=== PATIENT | female | born 1965 | race Caucasian/White ===

== ENCOUNTER 2018-07-08 09:52 | Outpatient (CLI) | payer BC, SELFPAY ==
[2018-07-08 11:21] LABS: Hemoglobin A1C 5.3 % (4.5-6.2)
[2018-07-08 11:26] LABS: ALT 22 U/L (12-78); AST 13 U/L (15-37); Albumin 3.9 g/dL (3.4-5.0); Alkaline Phosphatase 108 U/L (46-116); Anion Gap 8.1 mmol/L (3-11); BUN 20 mg/dL (7-18); Bilirubin, Total 0.3 mg/dL (0.2-1.0); CO2 27.9 mmol/L (21.0-32.0); CREATININE 0.74 mg/dL (0.55-1.02); Calcium 9.2 mg/dL (8.5-10.1); Chloride 105 mmol/L (98-107); Glucose 82 mg/dL (70-100); Potassium 4.7 mmol/L (3.5-5.1); Sodium 141 mmol/L (136-145); Total Protein 6.9 g/dL (6.4-8.2)
== END 2018-07-08 10:12 ==
PROVIDERS: PCP Family Medicine; Visit Provider Family Medicine
DX: R73.03 Prediabetes (principal); K21.9 Gastro-esophageal reflux disease without esophagitis
CPT/HCPCS: 36415; 80053; 83036; 83735

== ENCOUNTER 2018-08-24 10:11 | Outpatient (REF) | payer BC, SELFPAY | END 2018-08-24 10:31 | LOC: LBN 10:11 | PROVIDERS: PCP Family Medicine | DX: R10.2 Pelvic and perineal pain (principal) | CPT/HCPCS: 87480; 87510; 87660 ==

== ENCOUNTER 2018-08-26 10:01 | Outpatient (REF) | payer BC, SELFPAY ==
[2018-08-27 14:27] LABS: Chlamydia Result Negative; GC Result Negative; Specimen Description URINE
== END 2018-08-26 10:21 ==
LOC: LBN 10:01
PROVIDERS: PCP Family Medicine; Visit Provider Family Medicine
DX: N76.0 Acute vaginitis (principal); R10.2 Pelvic and perineal pain; Z11.3 Encounter for screening for infections with a predominantly sexual mode of transmission
CPT/HCPCS: 87491; 87591

== ENCOUNTER 2019-01-08 10:07 | Outpatient (CLI) | payer BC, SELFPAY ==
[2019-01-08 11:11] LABS: Hemoglobin A1C 5.6 % (4.5-6.2)
[2019-01-08 15:13] LABS: ALT 23 U/L (12-78); AST 17 U/L (15-37); Albumin 4.1 g/dL (3.4-5.0); Alkaline Phosphatase 111 U/L (46-116); Anion Gap 8.8 mmol/L (3-11); BUN 16 mg/dL (7-18); Bilirubin, Total 0.4 mg/dL (0.2-1.0); CO2 28.2 mmol/L (21.0-32.0); CREATININE 0.74 mg/dL (0.55-1.02); Calcium 9.7 mg/dL (8.5-10.1); Chloride 103 mmol/L (98-107); Folate 13.9 ng/mL (8.6-20.0); Glucose 92 mg/dL (70-100); Magnesium 1.9 mg/dL (1.8-2.4); Sodium 140 mmol/L (136-145); Total Protein 7.2 g/dL (6.4-8.2); Vitamin B12 613 pg/mL (193-986)
== END 2019-01-08 10:27 ==
PROVIDERS: PCP Family Medicine; Visit Provider Podiatrist Foot & Ankle Surgery
DX: R20.8 Other disturbances of skin sensation (principal); R25.2 Cramp and spasm; R73.03 Prediabetes
CPT/HCPCS: 36415; 80053; 82607; 82746; 83036; 83735

== ENCOUNTER 2019-02-17 00:49 | Outpatient (CLI) | payer BC, SELFPAY ==
--- NOTE | 2019-02-17 09:30 | DI.MRI_ITS ---
SYMPTOMS/DIAGNOSIS: RIGHT KNEE PAIN, INSTABILITY, S/P TWISTING 7 WEEKS AGO, CLICKS AND LOCKS, POSITIVE DARLYN, S83.20A, ? MEDIAL MENISCAL TEAR MRI OF THE RIGHT KNEE: Axial T2 fat-sat, coronal T2 fat-sat, coronal proton density, sagittal proton density, sagittal T2 fat-sat and sagittal proton density thin ACL pulse sequences were performed. The extensor mechanism of the knee is intact. A small joint effusion is demonstrated. There are degenerative changes involving the medial meniscus. No meniscal tear is demonstrated. The cruciate ligaments are intact. Chondromalacia involving the medial femoral condyle is evident. The patella and patellar cartilage, and medial and lateral patellar retinaculum, and medial and lateral collateral ligaments of the knee are intact. Note is made of a small Scott's cyst. SUMMARY: No evidence of a fracture. A small joint effusion is demonstrated. There is chondromalacia of the articular surface of the medial femoral condyle and a small Scott's cyst is demonstrated.
== END 2019-02-17 01:09 ==
PROVIDERS: PCP Family Medicine; Visit Provider Physician Assistant
DX: M25.561 Pain in right knee (principal); M25.361 Other instability, right knee; M25.461 Effusion, right knee; M71.21 Synovial cyst of popliteal space [Baker], right knee
CPT/HCPCS: 73721

== ENCOUNTER 2019-09-30 01:40 | Outpatient (CLI) | payer BC, SELFPAY ==
--- NOTE | 2019-09-30 08:49 | DI.MAMMO_ITS ---
EXAM: MG MAMMO SCREENING CLINICAL HISTORY: SCREENING Z12.31. TECHNIQUE: Bilateral full field digital CC and MLO mammographic images were obtained with 3D tomosyn thesis and utilizing computer aided detection (CAD). COMPARISON: [id number] FINDINGS: Masses/Architectural Distortion: None seen. Microcalcifications: No suspicious pleomorphic-type are seen. Skin Thickening/Nipple Retraction: None. IMPRESSION: 1. No significant interval change with no specific features of malignancy noted. 2. Unless there is more urgent need, screening mammography is recommended, as per [employer] guidelines. BI-RADS Cat 1 - Negative Breast Density - Category C - Heterogeneously dense A negative radiographic report should not delay biopsy if a dominant or clinically suspicious mass is present. Up to ten percent of cancers are not identified on mammography. A negative report may reinforce clinical impression. Adenosis and dense breasts may obscure an underlying neoplasm. False positive reports average 6 to 10%. Patient will receive a letter notifying them of these results.
== END 2019-09-30 02:00 ==
PROVIDERS: PCP Family Medicine; Visit Provider Family Medicine
DX: Z12.31 Encounter for screening mammogram for malignant neoplasm of breast (principal)
CPT/HCPCS: 77063; 77067

== ENCOUNTER 2019-12-08 11:17 | Outpatient (REF) | payer BC, SELFPAY | END 2019-12-08 11:37 | LOC: LBN 11:17 | PROVIDERS: PCP Family Medicine; Visit Provider Family Medicine | DX: R30.0 Dysuria (principal) | CPT/HCPCS: 87077; 87086; 87186 ==

== ENCOUNTER 2020-03-23 15:13 | Outpatient (REF) | payer BC, SELFPAY ==
--- NOTE | 2020-03-23 14:00 | PAPFT_PTH ---
PATIENT: Nelia uDrham LOC: [facility] U#:[id number] AGE/SX: 55/F ROOM: RE03/23/[address]: Rebecca Arredondo MD : 1965 BED: DIS: 03/23/2020 SPEC #: [id number] RECD: 03/27/20 12:33 STATUS: ERVIN REMinerva #: [id number] SUSANNE: 03/23/20 14:[address]: Rebecca Arredondo DEPT: [facility] Cytology RECD BY: Ophelia Granados Tissues: 1 - CX/ENDOCX FOR PAP SMEARS Procedures: PAP THIN PREP/UVM Screening HPV DNA PROBE Comments: [id number]
== END 2020-03-23 15:33 ==
LOC: LBN 15:13
PROVIDERS: PCP Family Medicine; Visit Provider Family Medicine
DX: Z12.4 Encounter for screening for malignant neoplasm of cervix (principal); Z11.1 Encounter for screening for respiratory tuberculosis
CPT/HCPCS: 88142; 87624

== ENCOUNTER 2020-05-06 20:43 | Emergency (ER) | payer BC, SELFPAY ==
--- NOTE | 2020-05-06 20:48 | W.ED.GENAD ---
Discharge Plan Disposition Patient Disposition: HOME Condition: Good Discharge Details Chief Complaint: Urinary Clinical Impression: Pyelonephritis, Abnormal finding on chest xray Primary Care Provider: Rebecca Arredondo ED Provider: Howard Calhoun [place] Meds and New Rx's Prescriptions: New levofloxacin 750 mg tablet 750 mg PO DAILY Qty: 7 RF: 0 Continued Breo Ellipta 200-25 mcg/dose blister with device 1 inh IH DAILY RF: 0 omeprazole 20 mg capsule,delayed release(DR/EC) 20 mg PO DAILY Qty: 90 RF: 4 oxybutynin chloride 5 mg tablet extended release 24hr 5 mg PO DAILY Qty: 90 RF: 4 verapamil 180 mg tablet extended release 180 mg PO DAILY Qty: 90 RF: 4 pramipexole [Mirapex] 0.5 mg tablet 0.5 mg PO QHS Qty: 90 RF: 4 Flovent HFA 110 mcg/actuation HFA aerosol inhaler 1 puff IH BID Qty: 12 RF: 0 Horizant 300 mg tablet extended release 600 mg PO QPM Qty: 90 RF: 2 Discharge Instructions Instructions: Urinary Tract Infection in Women (ED) Additional Instructions: For the most part your laboratory studies look good. Your urine does suggest infection still and your chest x-ray is questionable for infiltrates so we will cover you with Levaquin. COVID testing is pending. Stay in isolation/quarantine until results are back and you are asymptomatic feeling better with clearance from your doctor. Recommend obtaining finger pulse ox to monitor oxygen level at home. Be sure to continue inhalers and use rescue inhaler if needed. Rest, fluids, Tylenol. Return to ED for mental status changes, chest pain, shortness of breath, vomiting, consistent room air pulse ox in the 80s. Stand Alone Forms: PENDING COVID-19 TESTING Referrals: Rebecca Arredondo MD [Primary Care Provider] - Medical Decision Making Patient presents with complaint of fever, headache, muscle pain with mild dry cough and feeling of shortness of breath. Recently treated for UTI with Macrobid for 7 days. No travel to quarantine counties. No exposure to COVID patient's that she is aware of. Appears to be extremely concerned for COVID more than anything else. Was sent in to be evaluated for possible pyelonephritis versus COVID. Patient does not look ill or toxic in any way. She does have left CVAT. Will place IV and give fluids, Toradol, Zofran. Will obtain CBC and a BMP as well as urine. Chest x-ray ordered although lungs sound completely clear and room air pulse ox is normal. 10:30 PM: Patient's urine does appear to still be infected with trace leukocytes on dip and white cells w/ bacteria on micro and minimal epithelial cells. Given the left CVAT will cover with a dose of IV ceftriaxone. Chest x-ray is being read by radiology as patchy lung opacities, possibly infiltrates as well as increase right paratracheal fullness worrisome for adenopathy. Will get ambulatory room air saturation. Will add COVID swab and other labs and attempt to delineate possibility of COVID. We will plan on discharge with Levaquin to cover for both respiratory or urinary bacterial infection. Have already discussed self-isolation/quarantine until COVID swab is back. 11:20 PM: LFTs, LDH, and ferritin are all fine. D-dimer just a little elevated so not overly worrisome. Overall seems reassuring for mild disease even if COVID. Patient does have rescue inhaler at home. Ambulatory saturations here 93%. Recommend finger pulse ox for home use to monitor saturations. We will also start Levaquin as discussed above. Rest, fluids, Tylenol as needed. Stay in quarantine until asymptomatic with negative results. Please contact primary care on Friday. Return to ED if increasing shortness of breath, chest pain, mental status changes, vomiting, other concerns or problems. Lab Data Lab results reviewed: Yes I reviewed the patient's lab results. HPI General Mode of arrival: ambulatory. Date/Time Provider Initiated Documentation: 05/06/20 20:46. Limitations to Documentation: no limitations. Information obtained by: patient, RN/MD, RN notes reviewed and old records reviewed. HPI Narrative: Patient presents to the ED with complaint of fever. Patient reports that she woke up this morning with headache and nausea. [place] like a migraine. Did resolve with medications. Took a nap this afternoon and woke up with fever, headache, nausea. She also is reporting a dry cough and a feeling of mild shortness of breath though she did not use her rescue inhaler. She complains of muscle pain. She denies rash or joint pain. She has just recently been treated with Macrobid for UTI. She complains of some lower abdominal pressure but no real urinary symptoms. She does have some back pain. She did take Tylenol for the fever prior to coming in. She denies travel to any non-quarantine counties. She denies exposure to any known COVID patients. 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 She was sent in for evaluation of the fever with consideration for COVID versus pyelonephritis. Related Data Home Medications Medication Instructions Recorded Confirmed fluticasone furoate 200 1 inh IH DAILY 03/03/19 05/06/20 mcg-vilanterol 25 mcg/dose inhalation powder gabapentin enacarbil 300 mg 600 mg PO QPM #90 tab 03/07/19 05/06/20 tablet,extended release omeprazole 20 mg capsule,delayed 20 mg PO DAILY #90 tab-cap 09/15/19 05/06/20 release oxybutynin chloride 5 mg 5 mg PO DAILY #90 tab 09/15/19 05/06/20 tablet,extended release 24 hr pramipexole 0.5 mg tablet 0.5 mg PO QHS #90 tab 09/15/19 05/06/20 verapamil 180 mg tablet,extended 180 mg PO DAILY #90 tab-cap 09/15/19 05/06/20 release fluticasone propionate 110 1 puff IH BID #12 gm 03/23/20 05/06/20 mcg/actuation HFA aerosol inhaler levofloxacin 750 mg PO DAILY #7 tab 05/06/20 Previous Rx's Medication Instructions Recorded gabapentin enacarbil 300 mg 600 mg PO QPM #90 tab 03/07/19 tablet,extended release omeprazole 20 mg capsule,delayed 20 mg PO DAILY #90 tab-cap 09/15/19 release oxybutynin chloride 5 mg 5 mg PO DAILY #90 tab 09/15/19 tablet,extended release 24 hr pramipexole 0.5 mg tablet 0.5 mg PO QHS #90 tab 09/15/19 verapamil 180 mg tablet,extended 180 mg PO DAILY #90 tab-cap 09/15/19 release fluticasone propionate 110 1 puff IH BID #12 gm 03/23/20 mcg/actuation HFA aerosol inhaler levofloxacin 750 mg PO DAILY #7 tab 05/06/20 Allergies Allergy/AdvReac Type Severity Reaction Status Date / Time No Known Allergies Allergy Verified 05/06/20 21:01 Review of Systems Narrative: As documented in HPI otherwise negative as below. Const: no chills, weakness Resp: no pleuritic pain CV: no CP, diaphoresis, edema, syncope GI: no abdominal pain, vomiting, diarrhea Neuro: no numbness, focal weakness, confusion [facility] Medical History Asthma (Chronic) Depression Diverticulosis GERD (gastroesophageal reflux disease) (Chronic) Migraines Surgical History BUNIONECTOMY (~09/2012) RIGHT Endometrial Ablation (~2006) thermablation Ligation of fallopian tube THYROID CYST REMOVED 10/12 FA Family History (Updated 03/24/20 @ 11:38 by Chapin Morillo) Mother Heart disease Stroke Alzheimers disease Father , 78 Essential hypertension Heart disease Stroke Sister No problems noted. Brother Heart disease Hyperlipidemia Alcohol abuse Cancer Paternal Grandfather , 59 Heart disease Brother Alcohol abuse Depression Asthma Brother , 53 Substance abuse Alcohol abuse Essential hypertension Depression Heart disease MS Brother Substance abuse Alcohol abuse Depression Schizophrenia Brother No problems noted. Brother Alcohol abuse Depression Hyperlipidemia Brother Essential hypertension Hyperlipidemia Brother Hemochromatosis Son Depression Son Depression Maternal Grandfather , 92 No problems noted. Maternal Grandmother , 99 No problems noted. Paternal Grandfather , 58 Heart disease Paternal Grandmother , age 72 No problems noted. 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 Pets and animals: Yes Pets and animals: dog(s) Sexually active: No Do you think of yourself as: straight/heterosexual Current gender identity: female What is your relationship status?: How often do you talk on the phone with friends or family?: three or more times per week How often do you get together with friends or relatives?: decline to answer How often do you attend restoration or latter-day services?: 4 or more times per year Do you belong to any clubs or organized social groups?: yes Panel score (0-1 are the most socially isolated patients): 3 What type of physical activity do you participate in: other Details: spinning Duration: 45-60 minutes/day Frequency: 3-4 times per week [place]/Jainism: Baptism Special montserrat needs: No Seatbelt use: always Helmet use: Yes Helmet use: always Drive intox or ride w/intox short haul driver: No Do you feel safe at home: Yes Do you feel safe in your relationship?: Yes Exam Narrative Exam Narrative: Vitals: Afebrile with normal vitals and normal room air pulse ox. Const: Obese female in NAD. HEENT: NC/AT. Normal facial exam. Eyes: Normal conjunctiva and sclera. Neck: Supple. Trachea midline. Lungs: Normal respiratory effort. Lungs are clear. Cor: RRR without murmur/gallop. Good radial pulses. GI: Soft. NT/ND. No guarding or rebound. Back: Left CVAT. Neuro: A+O x 3. Normal speech, mentation, gait. Cranial nerves II - XII grossly intact. No gross motor or sensory deficit. Ext: No C/C/E. Skin: Warm and dry without rash.
[2020-05-06 20:55] VITALS: BP 122/75; PULSE 98; RESP 18; TEMP 36.7; O2SAT 96
--- NOTE | 2020-05-06 21:00 | DI.RAD_ITS ---
EXAM: XR PORTABLE CHEST AP CLINICAL HISTORY: cough, fever TECHNIQUE: 2D digital imaging was performed. COMPARISON: CR CHEST 2 VIEWS PA,LAT from 04/29/2017 CR PORTABLE CHEST ONE VIEW from 05/18/2017 FINDINGS: MEDIASTINUM: There is increased prominence of the right paratracheal region. HEART: Normal. PULMONARY VASCULATURE: Normal. LUNGS: Patchy infiltrates are seen throughout the lungs most prominent in the upper lobes in the left lower lobe. PLEURAL SPACE: No pleural effusion or pneumothorax. BONE:Degenerative changes are seen in the spine. OTHER FINDINGS:Normal. IMPRESSION: 1. Bilateral pulmonary opacities which may represent filtrates but pulmonary nodules cannot be exclud ed.. 2. Right paratracheal fullness which is appears mildly progressed since the prior examination. Adeno benton should be considered. 3. Follow-up CT scan of the chest should be obtained for further evaluation. DATA REPOSITORY: RADIATION DOSE DELIVERED:
--- NOTE | 2020-05-06 21:05 | NUR.NOTE ---
Nursing Note: Pt states sent here for COVID19 testing, concern for travel in 3 local counties and grandson got sick yesterday. Pt states this seems to be more her focus than kidney pain or urinary issues.
[2020-05-06] MEDS: Ondansetron 4 MG/2 ML VIAL IVP (21:39)
[2020-05-06] MEDS: Lactated Ringers 1,000 ML 1000 ML IV (21:39)
[2020-05-06] MEDS: Ketorolac 15 MG/ML VIAL IVP (21:39)
[2020-05-06 21:46] LABS: Bilirubin Negative (Negative); Blood Negative (Negative); Clarity Clear (Clear); Glucose Negative (Negative); Ketones Negative (Negative); Leukocyte Esterase Trace (Negative); Nitrite Negative (Negative); Specific Gravity >= 1.030 (1.005-1.025); Urobilinogen 0.2 EU/dL (Up TO 0.2); pH 5.5 (5-8)
[2020-05-06 21:46] LABS: Abs Immature Grans 0.03 k/cumm (0.0-0.09); Absolute Basophil Count 0.01 k/cumm (0.0-0.2); Absolute Eosinophil Count 0.27 k/cumm (0.0-0.7); Absolute Lymphocyte Count 0.57 k/cumm (1.2-3.4); Absolute Monocyte Count 0.52 k/cumm (0.11-0.7); Absolute Neutrophil Count 10.79 k/cumm (1.2-6.7); Basophils % 0.1; Eosinophils % 2.2; HCT 42.2 % (36.0-46.0); Immature Grans % 0.2 %; Lymphocytes % 4.7; Mean Corp. HGB Concentration 33.2 g/dL (32.0-36.0); Mean Corpuscular Volume 90.6 fL (80-95); Mean Platelet Volume 10.8 fL (8.0-11.0); Monocytes % 4.3; Neutrophils % 88.5; Platelet Count 264 x1000/uL (130-400); RBC 4.66 m/cumm (4.00-5.20); RBC Distribution Width 12.7 % (11.7-14.6); White Blood Cell Count 12.19 k/cumm (4.4-10.8)
[2020-05-06 21:51] LABS: Anion Gap 11.2 mmol/L (3-11); BUN 9 mg/dL (7-18); CO2 24.8 mmol/L (21.0-32.0); CREATININE 1.01 mg/dL (0.55-1.02); Calcium 9.2 mg/dL (8.5-10.1); Chloride 102 mmol/L (98-107); Glucose 130 mg/dL (74-106); Potassium 3.7 mmol/L (3.5-5.1); Sodium 138 mmol/L (136-145)
--- NOTE | 2020-05-06 22:01 | DI.VRAD_ITS ---
PROCEDURE INFORMATION: Exam: XR Chest, 1 View Exam date and time: 05/06/2020 9:18 PM Age: 55 years old Clinical indication: Other: Cough, fever TECHNIQUE: Imaging protocol: XR of the chest Views: 1 view. Other technique: Portable exam. COMPARISON: SC PORTABLE CHEST ONE VIEW 05/18/2017 9:25 PM FINDINGS: Lungs: There is some patchy ill-defined parenchymal opacities, right upper lobe and left lower lobe with probable lingular and right lower lobe involvement. Pleural space: Unremarkable. No pleural effusion. No pneumothorax. Heart/Mediastinum: There is some right paratracheal fullness. This appears increased in conspicuity compared to prior study. Vasculature: Mild aortic ectasia. Bones/joints: Mild thoracic spondylosis. IMPRESSION: 1. Right paratracheal fullness slightly increased in conspicuity since prior exam. Adenopathy of concern. 2. Patchy lung opacities, possible infiltrates. Follow-up recommended. Dictated and Authenticated by: Sarah Narayanan MD. Ordering:MURIEL Lawrence MD
[2020-05-06 22:07] LABS: Bacteria Rare HPF (Negative); C & S Indicated? Yes; Crystals Negative HPF (Negative); Epithelial Cells Few HPF (Negative); Mucus Heavy (Negative)
[2020-05-06] MEDS: cefTRIAXone 1 GM/50 ML BAG IVPB (22:35)
[2020-05-06 22:42] LABS: ALT 24 U/L (14-59); AST 18 U/L (15-37); Albumin 3.9 g/dL (3.4-5.0); Alkaline Phosphatase 106 U/L (46-116); Bilirubin, Direct 0.12 mg/dL (0.00-0.20); Bilirubin, Total 0.5 mg/dL (0.2-1.0); C-Reactive Protein 4.71 mg/dL (0.0-0.3); LDH 208 U/L (81-234); Total Protein 7.5 g/dL (6.4-8.2)
[2020-05-06 23:03] LABS: Procalcitonin < 0.1 ng/mL
[2020-05-06 23:06] LABS: D-Dimer 524 ng/mlFEU (<500)
[2020-05-06 23:07] LABS: Ferritin 96 ng/mL (8-252)
--- NOTE | 2020-05-06 23:09 | NUR.NOTE ---
Nursing Note: Room air ambulation shows SaO2 93% with quick recovery to 95% after sitting. MD aware.
[2020-05-06 23:19] VITALS: BP 121/70; PULSE 90; RESP 18; TEMP 36.7; O2SAT 96
[2020-05-08 20:51] LABS: COVID-19 RT-PCR Result NEGATIVE (Negative)
--- NOTE | 2020-05-09 14:11 | NUR.NOTE ---
Nursing Note: Contacted patient via phone and notified of negative covid test results
== END 2020-05-06 23:30 | disposition home or self-care (01) ==
PROVIDERS: Emergency Provider Emergency Medicine; PCP Family Medicine
DX: N10 Acute pyelonephritis (principal); R91.8 Other nonspecific abnormal finding of lung field; R05 Cough; R50.9 Fever, unspecified; R06.02 Shortness of breath; Z03.818 Encounter for observation for suspected exposure to other biological agents ruled out; Z87.440 Personal history of urinary (tract) infections
CPT/HCPCS: 36415; 80048; 80076; 84145; 96361; 96365; 96375; 99284; U0003; 71045; 81003; 81015; 82728; 83615; 85025; 85379; 86140; 87086; J0696; J1885; J2405; J3490

== ENCOUNTER 2020-05-16 01:17 | Outpatient (CLI) | payer BC, SELFPAY ==
--- NOTE | 2020-05-16 09:15 | DI.CT_ITS ---
EXAM: CT CHEST W CLINICAL HISTORY: bilat.pulm.opacities/rt paratracheal fullness on chest xray TECHNIQUE: Imaging Protocol: Axial computed tomography images with coronal and sagittal reformatted images were created and reviewed CONTRAST MATERIAL: Intravenous: Omnipaque 350 Contrast volume:70 mL. COMPARISON: CR,XR XR PORTABLE CHEST AP from 05/06/2020 FINDINGS: Tracheobronchial tree: Patent where visualized. Mediastinum and Esther: No significant mediastinal adenopathy is seen. No right paratracheal mass or a denopathy is appreciated. Pulmonary parenchyma: Bilateral parenchymal scarring is present predominantly in the lower lobes. Th ere is a 3 mm noncalcified pulmonary nodule in the lateral aspect of the left upper lobe. No consoli dating infiltrates. Pleura: No effusion or pneumothorax. Heart: The heart is not dilated. No coronary artery calcifications are seen. No significant pericardi al effusion. Aorta: Thoracic aorta non-dilated. Upper abdomen: Cholelithiasis. No biliary ductal dilatation. 2 hypodensities in the left lobe of t he liver. The largest measures 0.8 cm. They are too small for further characterization but likely r eflect cysts. Lymph nodes: Within normal limits. Bones: Degenerative changes. No aggressive sclerotic or lytic lesions. Soft tissues: Unremarkable. IMPRESSION: 1. No acute pulmonary process. 2. 3 mm noncalcified pulmonary nodule in the left upper lobe. In the presence of significant patient medical history (smoking or other risk factors for malignancy), a follow-up CT scan in 12 months is recommended. 3. Cholelithiasis. No biliary ductal dilatation. 4. No evidence of a right paratracheal mass or adenopathy. RADIATION DOSE DELIVERED: Total DLP DATA REPOSITORY: All CT scans at this facility are submitted to the National Radiology Data Registry (NRDR) Dose Index Registry (DIR) with the [employer] (ACR). RADIATION OPTIMIZATION: All CT scans at this facility use at least one of these dose optimization te chniques: automated exposure control; mA and/or kV adjustment per patient size (includes targeted exa ms where dose is matched to clinical indication); or iterative reconstruction.
[2020-05-16] MEDS: Omnipaque 350 MG/ML 100 ML BTL IJ (09:32)
== END 2020-05-16 01:37 ==
PROVIDERS: PCP Family Medicine; Visit Provider Family Medicine
DX: R93.89 Abnormal findings on diagnostic imaging of other specified body structures (principal); R91.1 Solitary pulmonary nodule
CPT/HCPCS: 71260; J3490

== ENCOUNTER 2020-06-16 03:51 | Outpatient (CLI) | payer BC, SELFPAY ==
--- NOTE | 2020-06-16 09:40 | DI.MRI_ITS ---
EXAM: MR CERVICAL SPINE WO CLINICAL HISTORY: severe pain from cervical radiculopathy/numbness,M54.12 TECHNIQUE: Multiplanar multisequence MRI of the cervical spine was performed without intravenous con trast. COMPARISON: MR MRI - CERVICAL SPINE WO CONT from 05/06/2014 CT NECK WITH CONTRAST from 08/05/2017 FINDINGS: BONES: Vertebral body heights are maintained. Intervertebral disc spaces are normal. Alignment is nor mal. Bone marrow signal intensity is within normal limits. CERVICAL CORD: Craniovertebral junction is unremarkable. The cervical cord is normal size and signal intensity. SOFT TISSUES: Unremarkable. C2-3: No disc herniation or bulge is identified. C3-4: Mild disc bulging, eccentric toward the right. Small endplate osteophytes, greater on the righ t. C4-5: Mild loss of disc height. Endplate osteophytes projecting posteriorly and laterally, causing n eural foraminal narrowing, greater on the left. There is also effacement of the anterior CSF space. A small amount of fluid remains around the cord. C5-6: Moderate loss of disc height, small disc osteophytes eccentric toward the right causing right n eural foraminal narrowing. There is also effacement of the anterior CSF space. C6-7: Mild loss of disc height. Endplate osteophytes projecting mainly laterally, causing bilateral neural foraminal narrowing. C7-T1: No disc herniation or bulge is identified. IMPRESSION: Multilevel degenerative disc changes, greatest at C4-5 and C5-6. Multilevel neural foraminal narrowi ng and mild central canal stenosis is seen. No focal disc herniation is identified at any level. DATA REPOSITORY:
== END 2020-06-16 04:11 ==
PROVIDERS: PCP Family Medicine; Visit Provider Family Medicine
DX: M47.22 Other spondylosis with radiculopathy, cervical region (principal); M48.02 Spinal stenosis, cervical region
CPT/HCPCS: 72141

== ENCOUNTER 2020-09-05 00:33 | Outpatient (CLI) | payer BC, SELFPAY ==
--- NOTE | 2020-09-05 09:00 | ETT_ITS ---
APPROVED REPORT Exam: Exercise Treadmill Patient Location: Out-Patient Room/Bed: Stress Nurse: Corrina Soto RN BMI: 35.29 Baseline Rhythm: Sinus Rhythm Indications: KILPATRICK, unspecified asthma. Medical History Medical History: Asthma, Depression, Fibromyalgia, Cluster Headache's. Cardiac Medications: Verapamil, Omeprazole, Magnesium. Allergies: No known drug allergies Cardiac Risk Factors: FHX of CAD, Asthma Previous Cardiac Procedures: None. Pretest Chest Pain Characteristics: No chest pain Exercise History: Sedentary Physical Disabilities: None. Lung Sounds: Clear to auscultation Heart Sounds: Regular Stress Test Details Test: Exercise stress testing was performed using a Karlo protocol. Rest Stress HR Resting HR Supine: 60 bpm Max Heart Rate (APMHR): 164 bpm Resting HR Standin bpm Target HR (85% APMHR): 139 bpm Max HR Achieved: 171 bpm % of APMHR: 104 Recovery HR: 96 bpm HR response to stress: Normal HR response to stress BP Resting BP Supine: 122/76 mmHg Resting BP Standin/72 mmHg Max BP: 152/68 mmHg Recovery BP: 118/70 mmHg BP response to stress: Normal blood pressure response to stress. ECG Resting ECG: Sinus Rhythm Ectopy: None. Stress ECG: Sinus Tachycardia ST Change: no significant ST segment changes noted. Arrhythmia: None Recovery ECG: Sinus Rhythm Recovery ST Change: no signficant ST segment changes noted. Recovery Arrhythmia: None Clinical Reason for Termination: Dyspnea Stress Symptoms: Dyspnea Exercise duration: 7 min22 sec Highest Stage Reached: Stage 3: 3.4 mph at 14% grade. Exercise capacity: 9.18 METs Stress ECG Conclusion 1. The resting electrocardiogram was normal. 2. Patient exercised on the Karlo protocol and completed a workload of 9.18 METS. Peak heart rate wa s greater in the 100% of predicted for age 3. Normal heart rate and blood pressure response to exercise 4. There was no electrocardiographic evidence of myocardial ischemia 5. There were no dysrhythmias 6. Carlson treadmill score is 9, low risk Stress Test Summary STAGE Time (mins) Speed (mph) Grade (%) HR BP SYMPTOMS METS Supine 60 122/76 Standing 92 120/72 1 3 1.7 10 128 126/70 4.6 2 6 2.5 12 154 148/66 SOB 7 1 min recovery 152 152/68 3 min recovery 95 146/70 SOB resolved 6 min recovery 96 118/70
== END 2020-09-05 00:53 ==
PROVIDERS: PCP Family Medicine; Visit Provider Internal Medicine
DX: R06.09 Other forms of dyspnea (principal); J45.909 Unspecified asthma, uncomplicated; Z82.49 Family history of ischemic heart disease and other diseases of the circulatory system
CPT/HCPCS: 93017

== ENCOUNTER 2020-09-29 13:47 | Outpatient (REF) | payer BC, SELFPAY | END 2020-09-29 14:07 | LOC: LBN 13:47 | PROVIDERS: PCP Family Medicine; Visit Provider Physician Assistant | DX: N30.00 Acute cystitis without hematuria (principal) | CPT/HCPCS: 87086 ==

== ENCOUNTER 2020-10-09 21:48 | Outpatient (REF) | payer BC, SELFPAY ==
[2020-10-09 22:38] LABS: Clarity Cloudy (Clear)
[2020-10-09 22:39] LABS: Specific Gravity 1.024 (1.005-1.025)
[2020-10-09 22:47] LABS: Crystals Many Amorphous HPF (Negative)
[2020-10-09 22:49] LABS: C & S Indicated? C&S Done As Ordered
[2020-10-11 13:26] LABS: Chlamydia Result Negative (Negative); GC Result Negative (Negative)
== END 2020-10-09 22:08 ==
LOC: LBN 21:48
PROVIDERS: PCP Family Medicine; Visit Provider Nurse Practitioner Family
DX: N76.0 Acute vaginitis (principal); R10.2 Pelvic and perineal pain; N39.0 Urinary tract infection, site not specified; R30.0 Dysuria
CPT/HCPCS: 87491; 87591; 81003; 81015; 87086; 87480; 87510; 87660

== ENCOUNTER 2020-10-10 03:18 | Outpatient (CLI) | payer BC, SELFPAY ==
[2020-10-10 08:42] LABS: Abs Immature Grans 0.03 10^3/uL (0.0-0.06); Absolute Basophil Count 0.08 10^3/uL (0.0-0.2); Absolute Eosinophil Count 0.67 10^3/uL (0.0-0.7); Absolute Lymphocyte Count 2.41 10^3/uL (1.2-3.4); Absolute Monocyte Count 0.42 10^3/uL (0.1-0.8); Absolute Neutrophil Count 5.02 10^3/uL (1.2-6.7); Basophils % 0.9; Eosinophils % 7.8; HGB 13.2 g/dL (11.2-15.7); Immature Grans % 0.3; Lymphocytes % 27.9; MCH 29.8 pg (27.0-33.0); MCHC 32.2 % (32.0-36.0); MCV 92.6 fL (80-95); MPV 9.7 fL (8.0-11.0); Monocytes % 4.9; Neutrophils % 58.2; Nucleated RBC 0 %; Platelet Count 435 10^3/uL (130-400); RBC 4.43 10^6/uL (3.93-5.22); RDW 12.3 % (11.7-14.6); RDW-SD 41.8 fL; WBC 8.63 10^3/uL (4.4-10.8)
[2020-10-10 09:52] LABS: Calculated LDL 146 mg/dL (<100); Cholesterol 225 mg/dL (<200); HDL Cholesterol 61 mg/dL (40-60); TSH 1.82 uIU/mL (0.36-3.74); Triglyceride 90 mg/dL (<150)
[2020-10-10 12:01] LABS: ALT 28 U/L (14-59); AST 15 U/L (15-37); Albumin 3.9 g/dL (3.4-5.0); Alkaline Phosphatase 87 U/L (46-116); Anion Gap 10.6 mmol/L (3-11); BUN 16 mg/dL (7-18); Bilirubin, Total 0.4 mg/dL (0.2-1.0); CO2 25.4 mmol/L (21.0-32.0); CREATININE 0.89 mg/dL (0.55-1.02); Calcium 9.4 mg/dL (8.5-10.1); Chloride 106 mmol/L (98-107); Glucose 91 mg/dL (74-106); Potassium 4.3 mmol/L (3.5-5.1); Sodium 142 mmol/L (136-145); Total Protein 6.8 g/dL (6.4-8.2)
== END 2020-10-10 03:38 ==
PROVIDERS: PCP Family Medicine; Visit Provider Physician Assistant
DX: E78.5 Hyperlipidemia, unspecified (principal); E03.9 Hypothyroidism, unspecified; R10.9 Unspecified abdominal pain
CPT/HCPCS: 36415; 80053; 80061; 84443; 85025

== ENCOUNTER 2020-10-17 01:17 | Outpatient (CLI) | payer BC, SELFPAY ==
--- OUTSIDE RECORDS SUMMARY | 2020-10-17 01:19 | XMS_ITS | Encounter Summary ---
:1965 Author Care Team Providers Name Role Phone Rebecca Arredondo ([facility]) Primary Care Provider [phone] [facility] Medical Records Primary Care Provider [phone] Socorro Nixon MD Pacu Rn Unavailable Reason for Visit None recorded. Assessment and Plan 1. Asthma She was doing well, she has not needed a lbuterol in more than 2 years. When she came off completely of Flovent and Anoro, she had some exercise related chest tightness and wheezing. She is currently on Breo 200/25, 1 puff once a day. Since January she has more chest tightness, wheezing and dyspnea on exertion. She is now also on Flovent 110 mcg, 1 puff twice a day. She will continue with that and she will get prednisone 40 mg to taper by 10 mg every 3 days, if she is not better after that, she will call me and we will schedule her for exercise cardiac stress test. She will start using her albuterol 2 min utes before scheduled exercise. She will stay off of Vesna and Singula ir, those did not seem to help in the past. Her NIOXX maneuver normalized by February. She had some decrease in FEV1 over the i ncreasing concentrations of methacholine but it did not reach the level that is considered to be a significant drop in FEV1. Overall her clinical picture as well as the NIOXX measurements that we have done still point towards her having asthma. She will call me in 2 weeks to let me k now of her progress Her 3 mm right middle lobe nodule on c hest CT in a lifelong non-smoker does not need to be further followed. Fluarix influenza vaccination was given today ? prednisone 10 mg tablet 2. Administration of influenza v accine ? Fluarix Quad [id number] (PF ) 60 mcg (15 mcg x 4)/0.5 mL IM syringe Discussion Note More than 25 minutes were spent wit h the patient , more than 50% of the time counseling Patient educational handouts: No information available. Plan of Care Reminders Provider Appointments Office 30 11/24/2020 Gracy hardy 10:45AM MD [facility] None ? ? recorded. Referral None ? ? recorded. Procedures None ? ? recorded. Surgeries None ? ? recorded. Imaging None ? ? recorded. Medications Name Start Date ? ? albuterol sulfate HFA 90 mcg/actuation aerosol inhaler ? INHALE 2 PUFFS INTO THE LUNGS Q 4 H alprazolam 0.25 mg tablet ? Take 1 tablet every day by oral route as needed. Anoro Ellipta 62.5 mcg-25 mcg/actuation powder for inh alation ? Inhale 1 puff every day by inhalation route. Breo Ellipta 200 mcg-25 mcg/dose powder for inhalation ? INL 1 PUFF PO QD Flovent HFA 110 mcg/actuation aerosol inhaler ? INL 2 PFS PO BID Horizant ER 600 mg tablet,extended release ? TAKE 1 TABLET BY MOUTH AT BEDTIME magnesium ? omeprazole 20 mg capsule,delayed release ? TAKE 1 CAPSULE BY MOUTH ONCE DAILY riboflavin (vitamin B2) ? rizatriptan 10 mg tablet ? verapamil ER (SR) 120 mg tablet,extended release ? verapamil ER (SR) 180 mg tablet,extended release ? vitamin B complex ? Medications Administered None recorded. Vitals Height Weight BMI Blood Pressure 5 ft 9 in 105 kg 34.2 kg/m2 122/62 mm[Hg] Results Lab Results None recorded. Allergies Code Code System Name Reaction Severity Onset NKDA ? ? ? Problems Name Status Onset Date Source ? Asthma Active 06/15/2018 ? Depressive Disorder Active ? History Restless Legs Active ? History Pain in Limb Active ? History Nocturia Active ? History Procedures None recorded. Vaccine List Vaccine Type influenza, injectable, quadrivalent 07/27/2018 influenza, injectable, quadrivalent, pre servative free 07/05/2019 08/03/2020?0.5 mL Social History Tobacco Smoking Status Former Smoker Notes: 2-3 yea rs smoked socially in college Exposure to Asbestos N Exposure to Chemicals or Toxins N Pets? Y Notes: dog Blind or serious difficulty seeing N Not es: wears corrective lenses Language Difficulties No Deaf or serious difficulty hearing N Most Recent Tobacco Use Screening 01/29/2019 Advance directive N Exposure to Silica N Functional Status No Impairment. Past Encounters 08/03/2020 Asthma; Administration of Influenza Vacc ine Socorro Nixon MD: [address] [place] [address] Dr mire[address], [place] [address], Ph. History of Present Illness Note: <p>Patient is a 55-year-old woman who comes in for followup on exertional shortness of breath and cough and asthma. She had sinusitis in December 2016 , and shortness of breath on exertion. Chest x-ray 05/18/2017 was normal. She had a negative cardiac stress test and a normal echo. In September,, she had a thyroglossal duct cyst removal and the previous gasping episodes after that went away.</p><p>She had a sleep study in December of 2014, which was negative but showed severe periodic limb movement disorder. She took Requip, which caused a lot of foot tremors and was very difficult to tolerate.</p><p>She was, in December 2017, started on gabapentin 300 at bedtime. Shestill woke up in the middle of the night from restless leg, So she was changed to Horizant 600 mg atnight and later Mirapex 0.25 mg was added. With that her restless legs are well controlled, but if she skips even one dose the symptoms come back.</p><p>
</p><p>She is a lifelong non-smoker.</p><p>
</p><p>In terms of her breathing, she has done very well since January,, she has not needed albuterol for the last 2 years, last visit she was switched from Flovent and Anoro to Breo 200/25, 1 puff once a day because of insurance specifications, she had done very well on that. She has no coughing, no shortness of breath or wheezing. Shehad a torn meniscus in December, and a meniscus repair in April 2019. She recovered well and is participating in spinning. She was able to cut down on Breo to 100/25, 1 puff once a day. In January,, she started to have increased shortness of breath and coughing. Breo was increased back to 200/25, 1 puff once a day and Flovent was added 1 puff twice a day. She took that all throughout the summer, and then ran out of it about a week ago and had increasing shortness of breath. She still has some wheezing but no coughing. No nocturnal asthma symptoms. She is now short of breath walking quarter to ahalf a mile. In April, she had an ER visit for pyelonephritis, they did a chest x-ray which showed possible hilar fullness, CT angiogram of the chest was done on 05/16/2020. There was no hilar lymphadenopathy.</p><p>She offers no other complaints</p><p>
</p><p>SHE HAS POLLEN ALLERGIES.</p><p>Social history: Lifelong non-smoker</p><p>
</p> Review of Systems ? Notes: <p>as above</p> Physical Exam ? Notes: <p>Middle-aged woman in no a cute distress</p><p>Throat: Clear</p><p>Chest: clear Bilateral breath sound s with no wheezing crepitations or crackles. Minimally prolonged expirato ry phase on forceful exhalation, with minimal end expiratory wheezing and coug doug</p><p>Heart, S1, S2 normal</p><p>Neuro; A/O x 3</p><p>Extremities: No kai a, clubbing, cyanosis</p>
--- OUTSIDE RECORDS SUMMARY | 2020-10-17 01:19 | XMS_ITS ---
:1965 Author Care Team Providers Name Role Phone IVÁN HOANG ([facility]) Primary Care Provider [phone] SOCORRO NIXON MD [facility] Unavailable [facility] RECORDS Primary Care Provider [phone] Allergies Code Code System Name Reaction Severity Status Onset NKDA ? Medications Name Status Start Date Stop Date ? ? albuterol sulfate HFA 90 mcg/actuation aerosol inhaler Active ? Not available INHALE 2 PUFFS INTO THE LUNGS Q 4 H alprazolam 0.25 mg tablet Active ? Not av ailable alprazolam 0.5 mg tablet Completed ? 020 Anoro Ellipta 62.5 mcg-25 mcg/actuation powder for inhalation Ac tive ? Not available Inhale 1 puff every day by inhalation route. azithromycin 250 mg tablet Completed ? 01/29 Breo Ellipta 100 mcg-25 mcg/dose powder Completed ? 08/03/2020 for inhalation Breo Ellipta 200 mcg-25 mcg/dose powder for inhalation Active ? Not available INL 1 PUFF PO QD ciprofloxacin 250 mg tablet Completed ? 02/2019 cyclobenzaprine 5 mg tablet Completed ? 05/2020 fexofenadine 180 mg tablet Completed ? 01/29 Flovent HFA 110 mcg/actuation aerosol inhaler Active ? Not available INL 2 PFS PO BID gabapentin 300 mg capsule Completed ? 2019 Horizant ER 300 mg tablet,extended Completed ? 07/05/2019 release Horizant ER 600 mg tablet,extended release Active ? Not available TAKE 1 TABLET BY MOUTH AT BEDTIME levofloxacin 750 mg tablet Completed ? 08/03 magnesium Active ? Not available montelukast 10 mg tablet Completed ? 019 Neupro 2 mg/24 hour transdermal 24 hour Completed ? 01/29/2019 patch Neupro 3 mg/24 hour transdermal 24 hour patch Completed ? 08/13/2018 Apply 1 patch every day by transdermal route. nitrofurantoin Completed ? 08/03/2020 monohydrate/macrocrystals 100 mg capsule omeprazole 20 mg capsule,delayed release Active ? Not available TAKE 1 CAPSULE BY MOUTH ONCE DAILY omeprazole 40 mg capsule,delayed Completed ? 01/29/2019 release oxybutynin chloride ER 5 mg Completed ? 07/29 tablet,extended release 24 hr oxycodone 5 mg tablet Completed ? 12/27/2019 phenazopyridine 100 mg tablet Completed ? phenazopyridine 200 mg tablet Completed ? pramipexole 0.25 mg tablet Completed ? 12/26 pramipexole 0.5 mg tablet Completed ? 2019 prednisone 10 mg tablet Completed ? 08/25/20 prednisone 20 mg tablet Completed ? 08/03/20 promethazine 25 mg tablet Completed ? 2019 riboflavin (vitamin B2) Active ? Not avai lable rizatriptan 10 mg tablet Active ? Not rory ilable ropinirole 2 mg tablet Completed ? sulfamethoxazole 800 mg-trimethoprim Completed ? 08/03/2020 160 mg tablet topiramate 25 mg tablet Completed ? 08/25/20 verapamil ER (SR) 120 mg Active ? Not rory ilable tablet,extended release verapamil ER (SR) 180 mg Active ? Not rory ilable tablet,extended release vitamin B complex Active ? Not available Problems Name Status Onset Date Source ? Asthma Active 06/15/2018 ? Obesity Unknown ? History Depressive Disorder Active ? History Hypersomnia Unknown ? History Restless Legs Active ? History Pain in Limb Active ? History Irregular Sleep-wake Pattern Unknown ? His tory Dyspnea Unknown ? History Nocturia Active ? History Sleep Deprivation Unknown ? History Procedure by Method Unknown ? History Procedures Date Name Performed by ? 08/25/2020 Exercise Stress Test Xray [facility] [address] [place], [place] [address] (Work Place) Results Lab Results None recorded. Past Encounters 08/25/2020 Asthma Socorro Nixon MD: [address] [place] [address] Dr aline Morrell [address] [place] [phone], Ph. 08/03/2020 Asthma; Administration of Influenza Vacc ine Socorro Nixon MD: [address] [place] [address] Dr aline Morrell [address], [place] [address], Ph. 12/27/2019 Asthma Socorro Nixon MD: [address] [place] [address] Dr mireles [facility] [address], [place] [address], Ph. 07/05/2019 Asthma; Restless Legs Socorro Nixon MD: [address] [place] [address], Ph. Social History Tobacco Smoking Status Former Smoker Notes: 2-3 yea rs smoked socially in college Vaccine List Vaccine Type influenza, injectable, quadrivalent 07/27/2018 influenza, injectable, quadrivalent, pre servative free 07/05/2019 08/03/2020?0.5 mL Plan of Care Reminders Provider Appointments None ? ? recorded. Lab None ? ? recorded. Referral None ? ? recorded. Procedures None ? ? recorded. Surgeries None ? ? recorded. Imaging None ? ? recorded. Vitals 08/25/2020 10:30AM Office 30 Height Weight BMI Blood Pressure 175.26 cm 107 kg 34.8 kg/m2 128/62 mm[Hg] 08/03/2020 09:45AM Office 15 Height Weight BMI Blood Pressure 175.26 cm 105 kg 34.2 kg/m2 122/62 mm[Hg] 12/27/2019 01:45PM Office 15 Height Weight BMI Blood Pressure 175.26 cm 111 kg 36.1 kg/m2 118/70 mm[Hg] 07/05/2019 03:15PM Follow Up 30 Height Weight BMI Blood Pressure 175.26 cm 111.8 kg 36.4 kg/m2 143/83 mm[Hg] 01/29/2019 03:30PM Office 30 Height Weight BMI Blood Pressure 175.26 cm 110 kg 35.8 kg/m2 128/68 mm[Hg] 06/10/2018 03:30PM Any 30 Height Weight BMI Blood Pressure 175.26 cm 106.5 kg 34.7 kg/m2 110/70 mm[Hg] 01/19/2018 Height 175.26 cm 01/19/2018 Weight Blood Pressure 105.23 kg 120/80 mm[Hg] 02/13/2015 Weight Blood Pressure 104.33 kg 120/72 mm[Hg] 12/19/2014 Weight Blood Pressure 106.14 kg 102/64 mm[Hg] 12/19/2014 Height 177.8 cm
--- OUTSIDE RECORDS SUMMARY | 2020-10-17 01:19 | XMS_ITS | Encounter Summary ---
:1965 Author Care Team Providers Name Role Phone Rebecca Arredondo ([facility]) Primary Care Provider [phone] [facility] Medical Records Primary Care Provider [phone] Socorro Nixon MD Pharmacy Services Representative Unavailable Reason for Visit None recorded. Assessment and Plan 1. Asthma She was doing well, she has not needed a lbuterol in more than 2 years. When she came off completely of Flovent and Anoro, she had some exercise related chest tightness and wheezing. She is currently on Breo 200/25, 1 puff once a day and Flovent 110 mcg, 2 puffs twice a day. She really did not turn the corner with a prednisone taper or to premedicate before scheduled exercise with a lbuterol. At present we will add Anoro 1 puff once a day and will reevaluate in 2 weeks, but she will also need to be set up for a cardiac treadmill stress test and with a visit with Dr Anna to make s ure that her exertional shortness of michelle ath which is not responding to conventional asthma therapy, is not related to underlying cardiac dysfunction. Anoro samples were given She will follow up here in 2 weeks She will stay off of Vesna and [...] done still point towards her having asthma. Her 3 mm right middle lobe nodule on [facility] CT in a lifelong non-smoker does not need to be further followed. She already got her flu shot ? Anoro Ellipta 62.5 mcg-25 mcg/actuation powder for inhalation ? cardiology referral - Dear Christopher, thank you for seeing this patient who has fairly recent onset fairly significa nt exercise intolerance with shortness of breath but no chest pain. She so far arielle led to respond to conventional asthma therapy for possible exacerbation of asthma. She is getting an exercise stress test. Please evaluate for any cardiac dysfunction cau sing her exercise intolerance and shortness of breath that is not responding to asth ma therapy. Thank you. Cindy ? exercise stress test Discussion Note More than 25 minutes were spent wit h the patient , more than 50% of the time counseling Patient educational handouts: No information available. Plan of Care Reminders Provider Appointments Office 30 Gracy hardy 11/24/2020 MD [facility] 10:45AM Lab None recorded. ? ? Referral Cardiology Christopher Anna MD Referral 08/25/2020 Procedures None recorded. ? ? Surgeries None recorded. ? ? Imaging Exercise [facility] Stress Test 08/25/2020 Medications Name Start Date ? ? albuterol [...] BMI Blood Pressure 5 ft 9 in 107 kg 34.8 kg/m2 128/62 mm[Hg] Results Lab Results None recorded. Allergies Code Code System Name Reaction Severity Onset NKDA ? ? ? Problems Name Status Onset Date Source ? Asthma Active 06/15/2018 ? Depressive Disorder Active ? History Restless Legs Active ? History Pain in Limb Active ? History Nocturia Active ? History Procedures Date Name Performed by ? 08/25/2020 Exercise Stress Test Xray [facility] [address] [place], [place] [address] (Work Place) Vaccine List Vaccine Type influenza, injectable, quadrivalent [...] N Functional Status No Impairment. Past Encounters 08/25/2020 Asthma Socorro Nixon MD: [address] [place] [address] Dr [address] [address], [place] [address], Ph. 08/03/2020 Asthma; Administration of Influenza Vacc ine Socorro Nixon MD: [address] [place] [address] Dr [address] [address], [place] [address], Ph. History of Present Illness Note: <p>Patient is a 55-year-old woman who comes in for followup on exertional shortness of breath and cough and asthma.
</p><p>She had sinusitis in December 2016 , and shortness of breath on exertion. Chest x-ray 05/18/2017 was normal. She had a negative cardiac stress test and a normal echo. In September,, she had a thyroglossal duct cyst removal and the previous gasping episodes after that went away.</p><p>She had a sleep study in December of 2014, which was n egative but showed severe periodic limb movement disorder. She took Requip, which caused a lot of foot tremors and was very difficult to tolerate.</p><p>She was, in December 2017, started on gabapentin 300 at bedtime. She still woke up in the middle of the night from restless leg, So she was changed to Horizant 600 mg at night and later Mirapex 0.25 mg was added. With that her restless legs are well controlled, but if she skips even one dose the symptoms come back.</p><p>
</p><p>She is a lifelong non-smoker.</p><p>
</p><p>Interms of her breathing, she has done very well since January,, she has not needed albuterol for the last 2 years, last visit she was switched from Flovent and Anoro to Breo 200/25, 1 puff once a daybecause of insurance specifications, she had done very well on that. She has no coughing, no shortness of breath or wheezing. She had a torn meniscus in December, and a [...] She took that all throughout the summer, in late May she started to have some chest tightness and shortness ofbreath, minimal wheezing, no coughing. No nocturnal asthma symptoms. She is now short of breath walking quarter to a half a mile. Since the last visit with me on 08/03/2020, she took a course of prednisone taper which only marginally helped, she is using albuterol to premedicate before scheduled exercise and even that does not seem to help all that much. She has no chest pain
</p><p>In April, she had an ER visit for pyelonephritis, they did a chest x-ray which showed possible hilar fullness, CT angiogram of the chest was done on 05/16/2020. There was no hilar lymphadenopathy.</p><p>She offers no other complaints</p><p>
</p><p>SHE HAS POLLEN ALLERGIES.</p><p>Social history: Lifelong non-smoker</p><p>
</p> Review of Systems ? Notes: <p>As above
</p> Physical Exam ? Notes: <p>Middle-aged woman in no a cute distress</p><p>Throat: Clear</p><p>Chest: clear Bilateral breath sound s with no wheezing crepitations or crackles. No prolonged expiratory phase e hellen on forceful exhalation, but she has minimal end expiratory coughing</p>< p>Heart, S1, S2 normal</p><p>Neuro; A/O x 3</p><p>Extremities: No kai a, clubbing, cyanosis</p>
--- OUTSIDE RECORDS SUMMARY | 2020-10-17 01:19 | XMS_ITS ---
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 Problem Burning R20.8 Active 73289665 sensation of feet Problem Hammer toe of M20.41 Active 718261 [id number] right foot ALLERGIES No Known Allergies ENCOUNTERS Encounter Location Date Diagnosis [facility] Nov, [place] [address] [facility] Oct, [place] [address] [facility] Oct, Bunion of lef t foot [address] [place], [place] M21.612 ; [place] [address] left foot M20.42 ; Hammer toe of right sheila t M20.41 ; Metatarsalgia of left foot M77.42 ; Metatar salgia, right foot M77.4 1 and Plantar wart of right foot B07.0 [facility] Oct, [place] [address] [facility] [address] Sep, [place] [address] B07.0 [facility] Sep, [place] [address] [facility] Sep, [place] [address] [address] Sep, Bunion of lef t foot [address] [place], [place] M21.612 ; [place] [address] left foot M20.42 ; Hammer toe of right sheila t M20.41 ; Metatarsalgia of left foot M77.42 ; Metatar salgia, right foot M77.4 1 and Plantar wart of right foot B07.0 [facility] Jun, Bunion of lef [place] foot [address] [place], [place] M21.612 ; [place] [address] left foot M20.42 ; Hammer toe of right sheila t M20.41 ; Metatarsalgia of left foot M77.42 and Metat arsalgia, right foot M77.4 [address] [facility] Mar, Bunion of lef [place] foot [address] [place], [place] M21.612 ; [place] [address] left foot M20.42 ; Hammer toe of right sheila t M20.41 ; Metatarsalgia of left foot M77.42 and Metat arsalgia, right foot M77.4 1 [facility] [address] February, [place] [address] [facility] [address] Jan, [place] [address] [facility] [address] Jan, [place] [address] [facility] [address] Jan, [place] [address] M21.612 ; H ammer toe of left foot M20.42 ; Hammer toe of right sheila t M20.41 ; Metatarsalgia of left foot M77.42 and Metat arsalgia, right foot M77.4 1 [facility] [address] Jan, [place] [address] M21.612 ; H ammer toe of left foot M20.42 ; Hammer toe of right sheila t M20.41 ; Metatarsalgia of left foot M77.42 and Metat arsalgia, right foot M77.4 1 [facility] [address] Jan, [place] [address] [address] Dec, [place] [address] [address] Dec, 2018 Bunion, left foot M21.612 [address] [place], [place] ; Bunion, right foot [address] M21.611 ; Burnin g sensation of fee t R20.8 ; Neuropathy of ana th feet G57.93 ; Pre-mili betes R73.03 and Cramp of both lower extremitie s R25.2 [facility] [facility] 06 Dec, 2018 [place] [address] [facility] [address] Oct, [place] [address] [facility] [address] [facility] 16 Mar, 2015 Hammer toe 73 5.4 ; Toe [address] [place], [place] pain, rig ht 729.5 and [address] Onychauxis 703.8 IMMUNIZATIONS No Known Immunizations SOCIAL HISTORY Qualifiers Date Never Smoker REASON FOR REFERRAL FUNCTIONAL STATUS PLAN OF CARE Activity Details Follow Up 4 Weeks Reason: Future Test VITAMIN B12 20190106 Future Test COMPMET 20190106 Future Test FOLATE 20190106 Future Test HEMOGLOBIN A1C 20190106 Future Test MAGNESIUM 81423480 Future Test X Foot L 3V 20190106 Future Test X Foot R 3V 20190106 VITAL SIGNS Height 70 in 2019-11-10 Weight 246 lbs 2019-11-10 BMI 35.29 kg/m2 2019-11-10 Temperature 98.1 degrees Fahrenheit 2019-11-10 Heart Rate 69 /min 2019-11-10 Respiratory Rate 18 /min 2019-11-10 Oximetry 98 % 2019-11-10 Blood pressure systolic 110 mm Hg 2019-11-10 Blood pressure diastolic 62 mm Hg 2019-11-10 MEDICATIONS Medication Instructions Dosage Frequency Start End Duration Statu s Date Date Horizant 600 MG Orally Once a 1 tablet in 24h 30 day (s) Active day the evening with food Ascorbic Acid Orally once a as directed 24h Not-Takin 500 MG day g Umeclidinium-Vi Inhalation Once 1 puff 24h Not-Takin lanterol a day g 62.5-25 MCG/INH Breo Ellipta Inhalation Once 1 puff 24h Act aline 100-25 MCG/INH a day Anoro Ellipta Inhalation Once 1 puff 24h No t-Takin 62.5-25 MCG/INH a day g Oxybutynin Orally Once a 1 tablet 24h 30 day(s) Acti ve Chloride ER 5 day MG Gabapentin Orally Once a 2 tablets 24h 30 day(s) Not -Takin Enacarbil ER day in the g 300 MG evening with food Verapamil HCl Orally Once a 1 tablet 24h 30 day(s) A ctive ER 180 MG day Mirapex 0.5 MG as directed Activ e Magnesium 200 Orally Once a 1 tab 24h Not- Takin MG day g Omeprazole 20 orally once a 1 cap(s) 24h Act aline mg day ALPRAZolam 0.5 Orally 3 times 1 tablet N ot-Takin MG a day as needed g Fluticasone Inhalation 1 puff 12h Not-Takin Propionate HFA Twice a day g 110 MCG/ACT PROCEDURES No Known procedures RESULTS Name Result Date Reference Range MULTIPLE LABS 2019-01-08 VITAMIN B12 2019-01-08 VITAMIN B12 613 FOLATE 2019-01-08 FOLATE 13.9 COMPMET 2019-01-08 ALBUMIN 4.1 ALKPHOS 111 ALT 23 AST 17 BUN 16 CALCIUM 9.7 CHLORIDE 103 CARBON DIOXIDE 28.2 CREATININE STANDARDIZED 0.74 DIRECT BILIRUBIN ESTIMATED GLOMERULAR FILTRATION >60.0 GLUCOSE 92 POTASSIUM 4.0 SODIUM 140 TOTAL BILIRUBIN 0.4 TOTAL PROTEIN 7.2 EGFR INTERPRETATION BUN/CREAT CORRECT AGE zzGLUCOSE zzCREATININE zzSODIUM zzPOTASSIUM zzCHLORIDE zzCO2 zzCALCIUM zzTOTAL PROTEIN zzALBUMIN zzTOTAL BILI zzALT zzAST zzALKALINE PHOS BUN*/CREAT* MAGNESIUM 2019-01-08 MAGNESIUM 1.9 MAGNESIUM* HEMOGLOBIN A1C 2019-01-08 HGA1C 5.6 CALC. MEAN GLUC HB2 reviously reported u X Foot L 3V 2019-01-06 Image Accessible X Foot R 3V 2019-01-06 Image Accessible MULTIPLE LABS 2018-07-08 MULTIPLE LABS 2018-07-08 REASON FOR VISIT ORTHOTICS PICKUP and wart f/u Referral Done pt can 12/07, orthotics 2nd pair, 2nd pair of orthoticsare in , 2 week f/u , pt states that she is here for a wart treatement , pt states that she feel herwart is ready to peeled , Question regarding wart treatment, f/u R foot verruca, referral done, cantharone applied 2 weeks ago, Cantharone plus medication received, 2nd pair Orthotics payment, 3m f/u, referral done, continued care of metatarsalgia. She has some pain and callousing remaining right plantar foot,-HL, pt states that her feet are feeling a lot better. , pt states that the callus on the rgiht foot is really bothering her , pt states that she would like a second set of orthotics , 3 monthf/u from orthotics Referral Done, last seen by ALR 04/14/19 for orthotic dispense , was to obtain newshoes per last note , per last note surgery was discussed but pt wanted to try orthotics first , pt states that the orthotics have helped -mrr, Pt states she had knee surgery (right knee) hence the reason for the cane. - mrr, pt states that the bottom of right foot is ointment mill tender. -mrr, Orthotic d ispense, Referral done, Patient was last seen on 02/04/19 orthotic casting done. Bunion left foot anddeformities of both feet with skin lesion submetatarsal 2 possibly 3 right foot., pt states she is here for orthotic dispense , 5/30 db- Orthotic dispense, Orthotic Billing Question, ORTHOTICS PAYMENT, ORTHOTIC CASTING, referral done., Patient was last seen on 02/01/19 for Bunion of left foot and was recommended to have custom orthotics made with metatarsal pads., pt states she is here for orthotic casting , 1 month follow up, referral done, Patient last seen on 01/06/19 - xrays of b/l feet were orderedand to be reviewed at todays visit. Lab work ordered at [facility] for Vit B12, Folate, A1C, CMP, and Magnesium to be reviewed at todays visit, pt states she is here for a 1 month f/u , pt states she had x-rays done at [facility] , pt states she had lab work done at [facility] , pt states her foot is okay but not great, pt states she might have torn her miniscus right knee, Updating patients chart, Lab orders- [facility], Hallux Valgus, referral done, last seen by WS 04/11/15 for hammer toe- flexortenotomy preformed right 2nd toe , Pt c/o bilateral foot "nerve pain". Also c/o plantar wart on right foot for about 1 year, occasional OTC treatments have not helped., r/s appt letter wanted, hallux valgus referral done, last seen by WS 04/11/15 for painful right second toe , Updating pt chart, flexor tenotomy fol low up-wks patient, Referral Done, juan, Referral Done, Pt states her right foot, had bunion removed from Hallux and her 2nd digit toenail is bothering her. JV Insurance Providers [facility] Health Member Patient Patient Patient Patient Patient Subscriber Subscriber Subscriber Group Insurance Plan Plan Plan Plan ID Relationship Address Phone Name Date of ID Name Date of No Type Insurance Insurance Insurance Coverage to Subscriber Address Phone Name Dates BLUE CROSS [phone] BLUE CROSS self ALOK 1 [id number] OF [facility] 4^[place] [address] [place] [id number] MEDICAID EDS MEDICAID self ALOK 1965 [id number] [place] [facility] [facility] [id number] SELF PAY [address] SELF PAY self ALOK 1965 [place] [address] SELF PAY self ALOK [id number] [place] [address] S[address] SELF PAY self ALOK 1965 [place] [address] S[address] SELF PAY self ALOK 1965 [place] [address] S[address] SELF PAY self ALOK 1965 [place] [address] INSURANCE BLUE CROSS [address] BLUE CROSS self ALOK [id number] [facility] [place] [id number] [place] [address] SELF PAY self ALOK 1965 [place] [address] INSURANCE MEDICAID E[place] MEDICAID self ALOK 1965 [place] [id number] MEDICAL (GENERAL) HISTORY Type Description Date Medical History Myafascia pain Medical History Bulding disc neck and lower back Medical History Depression Medical History Diverticulosis Medical History Migraines Medical History Hallux valgus, left Surgical History tubal ligation ablation 2006 Surgical History TMJ 2007 Surgical History Right foot bunion 2012 Surgical History Flexor tenotomy , right 2nd toe 03/2015 Surgical History Thyroid cyst removal 09/2017 Surgical History meniscus tear repair (right knee) Hospitalization History Salmonella poison 1986
--- OUTSIDE RECORDS SUMMARY | 2020-10-17 01:20 | XMS_ITS ---
:1965 External Reference #:[id number] Author Care Team Providers Name Role Phone Knights Primary Care Provider Unavailable Allergies None recorded. Medications Name Status Start Date Stop Date ? ? Allergy Relief (fluticasone) 50 mcg/actuation nasal spray,castle spension Completed ? 03/13/2017 [place] 1 spray every day by intranasal route. amoxicillin 875 mg-potassium Completed ? clavulanate 125 mg tablet fexofenadine 180 mg tablet Active ? Not a vailable hydroxyzine HCl 25 mg tablet Completed ? indomethacin 50 mg capsule Completed ? 03/13 lorazepam 0.5 mg tablet Completed ? 03/13/20 17 nitrofurantoin Completed ? 03/13/2017 monohydrate/macrocrystals 100 mg capsule omeprazole 20 mg capsule,delayed Active ? Not available release oxybutynin chloride Active ? Not availabl e 5mg/day oxybutynin chloride ER 5 mg Active ? Not available tablet,extended release 24 hr phenazopyridine 100 mg tablet Active ? No t available prednisone 10 mg tablet Completed ? 03/13/20 17 prednisone 20 mg tablet Completed ? 03/13/20 17 Take by oral route. ranitidine 300 mg tablet Active ? Not rory ilable rizatriptan 10 mg tablet Active ? Not rory ilable ropinirole 2 mg tablet Active ? Not avail able Ventolin HFA 90 mcg/actuation aerosol inhaler Completed ? 03/13/2017 Inhale 2 puffs every 4 hours by inhalation route. verapamil ER (SR) 180 mg tablet,extended release Active ? Not available Take 1 tablet every day by oral route. verapamil ER 180 mg 24 hr Completed ? 2016 capsule,extended release verapamil ER 240 mg 24 hr Active ? Not av ailable capsule,extended release Notes: to prevent headaches Problems None recorded. Procedures Date Name Performed by ? 09/26/2012 Other Information not avai lable 06/27/2007 Other Information not avai lable 10/27/2006 Other Information not avai lable 04/02/2017 MRI, Brain, W/o Contrast [facility] (Mri And Ct Scheduling) [facility] [place] [address] (Work Place) 04/02/2017 MRI, Brain, W/wo Contrast [facility] (Mri And Ct Scheduling) [facility] [place] [address] (Work Place) Results Lab Results None recorded. Past Encounters None recorded. Social History Tobacco Smoking Status Never Smoker Vaccine List None recorded. Plan of Care Reminders Provider Appointments None ? ? recorded. Lab None ? ? recorded. Referral None ? ? recorded. Procedures None ? ? recorded. Surgeries None ? ? recorded. Imaging None ? ? recorded. Vitals 05/13/2017 08:00AM ESTABLISHED PATIENT 45 Height Weight BMI Blood Pressure 5 ft 9 in 235 lbs 34.7 kg/m2 120/82 mm[Hg] 04/02/2017 08:30AM ESTABLISHED PATIENT 30 Height 5 ft 9 in 02/27/2017 11:45AM NEW PATIENT 90 Height Weight BMI Blood Pressure 5 ft 9 in 239 lbs 35.3 kg/m2 126/78 mm[Hg]
--- NOTE | 2020-10-17 08:45 | DI.CT_ITS ---
EXAM: CT ABDOMEN PELVIS W CLINICAL HISTORY: abdominal pain, ill feeling, malaise, R10.9, R53.81 TECHNIQUE: Imaging Protocol: Axial computed tomography images with coronal and sagittal reformatted images were created and reviewed CONTRAST MATERIAL: Intravenous: Omnipaque 350 Contrast volume:100 mL Oral: Yes COMPARISON: CT ABD PELVIS WO CONTRAST from 11/11/2016 FINDINGS: ABDOMEN: Lung Bases: There is scarring in the left lingula. Liver: Normal density. There is a cyst again seen in the left lobe of the liver. Portal, Superior Mesenteric, and Splenic Veins: Unremarkable. Gallbladder and Biliary Tract: Gallstones are present. No biliary ductal dilatation. No gallbladder wall thickening or pericholecystic fluid is seen. Pancreas: Normal density, no abnormal calcifications or inflammatory process. Spleen: Normal. Adrenals: No masses seen. Kidneys: Normal size, contour and axis. No radiodense stones or obstructive uropathy. No masses seen. Abdominal Aorta: Abdominal portion non-dilated. Bowel: No obstruction or bowel wall thickening. Appendix is unremarkable. There is diverticulosis of the transverse, descending and sigmoid colon but no evidence of acute diverticulitis. Peritoneal Cavity: No ascites, collection or mesenteric inflammatory response. Lymph Nodes: Within normal limits. Bones: Degenerative changes are seen in the spine. Grade 1 pseudo spondylolisthesis of L4 on L5 is n oted. Soft Tissues: Unremarkable. PELVIS: Bladder: Symmetric distention, no gross wall thickening. Mild stranding is seen at the superior anter ior aspect of the urinary bladder. A mild inflammatory infectious cystitis cannot be excluded. Reproductive Organs: Unremarkable as visualized. Lymph Nodes: Within normal limits. Bones: Degenerative changes are seen in the spine. IMPRESSION: 1. Mild stranding around the anterior superior urinary bladder. A mild infectious or inflammatory cy stitis cannot be excluded. Please correlate clinically. 2. Cholelithiasis. No biliary ductal dilatation. 3. Colonic diverticulosis but no evidence of acute diverticulitis. RADIATION DOSE DELIVERED: 1,325.93mGy.cm Total DLP DATA REPOSITORY: All CT scans at this facility are submitted to the National Radiology Data Registry (NRDR) Dose Index Registry (DIR) with the [employer] (ACR). RADIATION OPTIMIZATION: All CT scans at this facility use at least one of these dose optimization te chniques: automated exposure control; mA and/or kV adjustment per patient size (includes targeted exa ms where dose is matched to clinical indication); or iterative reconstruction.
[2020-10-17] MEDS: Omnipaque 350 MG/ML 100 ML BTL IJ (11:24)
[2020-10-17] MEDS: Normal Saline - Diluent 50 ML VIAL IV (11:25)
[2020-10-17] MEDS: Omnipaque 350 MG/ML 50 ML BTL IJ (11:25)
[2020-10-17] MEDS: Breeza Beverage 473 ML BTL PO (11:26)
== END 2020-10-17 01:37 ==
PROVIDERS: PCP Family Medicine; Visit Provider Physician Assistant
DX: K80.20 Calculus of gallbladder without cholecystitis without obstruction (principal); K57.30 Diverticulosis of large intestine without perforation or abscess without bleeding
CPT/HCPCS: 74177; J3490; Q9967

== ENCOUNTER 2020-11-02 00:54 | Outpatient (CLI) | payer BC, SELFPAY ==
--- NOTE | 2020-11-02 | DI.MAMMO_ITS ---
EXAM: MG MAMMO SCREENING CLINICAL HISTORY: SCREENING, Z12.39 TECHNIQUE: Bilateral full field digital CC and MLO mammographic images were obtained with 3D tomosyn thesis and utilizing computer aided detection (CAD). COMPARISON: Available for comparison. FINDINGS: Masses/Architectural Distortion: None seen. Microcalcifications: No suspicious pleomorphic-type are seen. Skin Thickening/Nipple Retraction: None. IMPRESSION: 1. No significant interval change with no specific features of malignancy noted. 2. Unless there is more urgent need, screening mammography is recommended, as per [employer] guidelines. BI-RADS Category 1 - Negative Breast Density - Category C - Heterogeneously dense Breast density category C or D implies that the patient has dense breast tissue. Dense breast tissue is very common and is not abnormal but dense breast tissue can make it harder to find cancer on a ma mmogram. Also, dense breast tissue may increase their breast cancer risk. This information about the result of the mammogram report was provided to the patient to raise their awareness. Use this report when you speak with the patient about their risks for breast cancer, which includes their family hist ory. At that time, you may recommend for more screening tests (Ultrasound or MRI) as they might be us eful based on their risk. A negative radiographic report should not delay biopsy if a dominant or clinically suspicious mass is present. Up to ten percent of cancers are not identified on mammography. A negative report may reinforce clinical impression. Adenosis and dense breasts may obscure an underlying neoplasm. False positive reports average 6 to 10%. Patient will receive a letter notifying them of these results.
== END 2020-11-02 01:14 ==
PROVIDERS: PCP Family Medicine; Visit Provider Family Medicine
DX: Z12.31 Encounter for screening mammogram for malignant neoplasm of breast (principal)
CPT/HCPCS: 77063; 77067

== ENCOUNTER 2021-09-17 03:29 | Outpatient (CLI) | payer BC, SELFPAY ==
[2021-09-17 09:09] LABS: Abs Immature Grans 0.01 10^3/uL (0.0-0.06); Absolute Basophil Count 0.04 10^3/uL (0.0-0.2); Absolute Lymphocyte Count 1.74 10^3/uL (1.2-3.4); Absolute Monocyte Count 0.33 10^3/uL (0.1-0.8); Absolute Neutrophil Count 3.41 10^3/uL (1.2-6.7); Basophils % 0.7; Eosinophils % 3.5; HCT 41.8 % (36.0-46.0); HGB 13.6 g/dL (11.2-15.7); Immature Grans % 0.2; Lymphocytes % 30.4; MCH 29.9 pg (27.0-33.0); MCHC 32.5 % (32.0-36.0); MCV 91.9 fL (80-95); MPV 11.3 fL (8.0-11.0); Monocytes % 5.8; Neutrophils % 59.4; Nucleated RBC 0 %; Platelet Count 296 10^3/uL (130-400); RBC 4.55 10^6/uL (3.93-5.22); RDW 12.1 % (11.7-14.6); RDW-SD 41.1 fL; WBC 5.73 10^3/uL (4.4-10.8)
[2021-09-17 09:26] LABS: Anion Gap 8.2 mmol/L (3-11); BUN 16 mg/dL (7-18); CO2 27.8 mmol/L (21.0-32.0); Calcium 9.3 mg/dL (8.5-10.1); Chloride 110 mmol/L (98-107); Estimated GFR 57.15 (mL/min/1.73m2); Glucose 68 mg/dL (74-106); Potassium 4.2 mmol/L (3.5-5.1); Sodium 146 mmol/L (136-145)
[2021-09-17 09:44] LABS: Ferritin 138 ng/mL (8-252)
[2021-09-17 09:55] LABS: Vitamin D 25 Total 38.1 ng/mL (30-100)
== END 2021-09-17 03:30 | disposition home or self-care (01) ==
LOC: LBO 03:29
PROVIDERS: Podiatrist Foot & Ankle Surgery; PCP Family Medicine; Visit Provider Nurse Practitioner
DX: M25.561 Pain in right knee (principal); E55.9 Vitamin D deficiency, unspecified
CPT/HCPCS: 36415; 80048; 82306; 82728; 85025

== ENCOUNTER 2022-11-19 16:47 | Outpatient (REF) | payer BC, SELFPAY ==
[2022-11-19 12:51] LABS: Bilirubin Negative (Negative); Blood Trace-intact (Negative); Clarity Cloudy (Clear); Glucose Negative (Negative); Ketones Negative (Negative); Leukocyte Esterase Large (Negative); Nitrite Negative (Negative); Specific Gravity 1.025 (1.005-1.025); Urobilinogen 0.2 EU/dL (Up TO 0.2); pH 5.5 (5-8)
[2022-11-19 12:59] LABS: Bacteria Few HPF (Negative); C & S Indicated? Yes; Casts Negative LPF (Negative); Crystals Negative HPF (Negative); Epithelial Cells Few HPF (Negative); Mucus Negative (Negative); RBC 0-2 HPF (0-2); WBC >50 HPF (0-5)
== END 2022-11-19 16:48 | disposition home or self-care (01) ==
LOC: LBN 16:47
PROVIDERS: PCP Nurse Practitioner Family; Visit Provider Nurse Practitioner Family
DX: R35.0 Frequency of micturition (principal); R82.998 Other abnormal findings in urine
CPT/HCPCS: 87077; 81003; 81015; 87086; 87186

== ENCOUNTER 2022-11-29 00:15 | Outpatient (CLI) | payer BC, SELFPAY ==
--- NOTE | 2022-11-29 07:15 | DI.MAMMO_ITS ---
Exam(s) MAMMO SCREENING EXAM: MAMMO SCREENING CLINICAL HISTORY: screening,Z12.39. TECHNIQUE: Bilateral full field digital CC and MLO mammographic images were obtained with 3D tomosyn thesis and utilizing computer aided detection (CAD). COMPARISON: Prior mammograms were reviewed. FINDINGS: There has been no significant change in the appearance and distribution of the fibroglandular tissue. There are no new spiculated masses nor malignant appearing microcalcification groups. Benign-appearing lymph nodes in the right breast are unchanged from prior studies. There is no significant architectural distortion nor skin thickening-retraction. IMPRESSION: No radiographic evidence of malignancy. BI-RADS Category 1 - Negative Breast Density - Category B - Scattered areas of fibroglandular density Breast density Category C or D implies that the patient has dense breast tissue. Dense breast tissue can make it harder to find cancer on a mammogram. Dense breast tissue is also associated with an incr eased risk of breast cancer. This information about the result of the mammogram report was provided to the patient to raise their awareness. Use this report when you speak with the patient about their risks for breast cancer, which includes their family history. At that time, you may recommend additional screening tests (Ultrasoun d or MRI) as these tests may add significant information. A negative radiographic report should not delay biopsy if a dominant or clinically suspicious mass is present. Up to ten percent of cancers are not identified on mammography. A negative report may reinforce clinical impression. Adenosis and dense breasts may obscure an underlying neoplasm. False positive reports average 6 to 10%. Patient will receive a letter notifying them of these results.
--- NOTE | 2022-11-29 11:30 | DI.DEXA_ITS ---
Exam(s) XR DEXA BONE DENSITY W/WO LYLA EXAM: XR DEXA BONE DENSITY W/WO LYLA CLINICAL HISTORY: screening FOR OSTEOPOROSIS IN POSTMENOPAUSAL WOMAN,Z78.0 TECHNIQUE: Routine DEXA evaluation of the lumbar spine, hip, or forearm. COMPARISON: No exams were available for comparison FINDINGS: Performed on a Hologic unit. Lateral image: No compression fracture evident. Lumbar Spine total T-score: -1.2 Hip total T-score:-0.9 Independent reading at the level of the femoral neck yields T-score of -1.3 Forearm total T-score: 0.0 IMPRESSION: Bone mineral density measures in the osteopenia range. Fracture risk is moderate. Note: Any spine fracture indicates 5x risk for subsequent spine fracture and 2x risk for subsequent h ip fracture. World Health Organization criteria for BMD interpretation classify patients: Normal...... T- Score at or above -1.0 Osteopenic... T- Score between -1.0 and -2.5 Osteoporosis... T-Score at or below -2.5
== END 2022-11-29 00:35 ==
LOC: DI 00:15
PROVIDERS: PCP Nurse Practitioner Family; Visit Provider Nurse Practitioner Family
DX: Z78.0 Asymptomatic menopausal state (principal); Z12.31 Encounter for screening mammogram for malignant neoplasm of breast; Z13.820 Encounter for screening for osteoporosis; M85.89 Other specified disorders of bone density and structure, multiple sites
CPT/HCPCS: 77063; 77067; 77080

== ENCOUNTER → 2023-12-01 03:09 | Outpatient (CLI) | payer OTHER, SELFPAY ==
--- NOTE | 2023-12-01 06:45 | DI.MAMMO_ITS ---
Exam(s) MAMMO SCREENING EXAM: MAMMO SCREENING CLINICAL HISTORY: screening,z12.39. TECHNIQUE: Bilateral full field digital CC and MLO mammographic images were obtained with 3D tomosyn thesis and utilizing computer aided detection (CAD). COMPARISON: Prior mammograms were reviewed. FINDINGS: There are no new findings in left breast. In the right breast there are few unchanged benign-appearing nodules located laterally which are prob ably benign intramammary lymph nodes. However, there is also a suggestion of a new asymmetric densit y-possible nodule located laterally, measuring approximately 7 x 5 mm and located 5 cm in from the ni pple. Spot compression view and ultrasound recommended. There are no malignant-appearing microcalcification groups in this region or elsewhere in either [address]. There is no significant architectural distortion nor skin thickening-retraction. IMPRESSION: 1. No radiographic evidence of malignancy in left breast. 2. Suggestion of possible new right breast nodule. Spot compression views and ultrasound recommended . BI-RADS Category 0 - Assessment Incomplete: Need additional imaging evaluation Breast Density - Category B - Scattered areas of fibroglandular density Breast density Category C or D implies that the patient has dense breast tissue. Dense breast tissue can make it harder to find cancer on a mammogram. Dense breast tissue is also associated with an incr eased risk of breast cancer. This information about the result of the mammogram report was provided to the patient to raise their awareness. Use this report when you speak with the patient about their risks for breast cancer, which includes their family history. At that time, you may recommend additional screening tests (Ultrasoun d or MRI) as these tests may add significant information. A negative radiographic report should not delay biopsy if a dominant or clinically suspicious mass is present. Up to ten percent of cancers are not identified on mammography. A negative report may reinforce clinical impression. Adenosis and dense breasts may obscure an underlying neoplasm. False positive reports average 6 to 10%. Patient will receive a letter notifying them of these results.
== END ==
PROVIDERS: PCP Nurse Practitioner Family; Visit Provider Nurse Practitioner Family
DX: Z12.31 Encounter for screening mammogram for malignant neoplasm of breast (principal); R92.323 Mammographic fibroglandular density, bilateral breasts; R92.8 Other abnormal and inconclusive findings on diagnostic imaging of breast
CPT/HCPCS: 77063; 77067

== ENCOUNTER 2023-12-01 11:43 | Outpatient (CLI) | payer OTHER, SELFPAY ==
[2023-12-01 07:58] LABS: HCT 41.6 % (36.0-46.0); HGB 13.9 g/dL (11.2-15.7); MCH 30.8 pg (27.0-33.0); MCHC 33.4 % (32.0-36.0); MCV 92 fL (80-95); MPV 10.4 fL (8.0-11.0); Platelet Count 293 10^3/uL (130-400); RBC 4.51 10^6/uL (3.93-5.22); RDW 11.9 % (11.7-14.6); RDW-SD 40.7 fL; WBC 6.59 10^3/uL (4.4-10.8)
[2023-12-01 08:43] LABS: Anion Gap 6.3 mmol/L (3-11); BUN 16 mg/dL (7-18); CO2 28.7 mmol/L (21.0-32.0); CREATININE 0.9 mg/dL (0.55-1.02); Calcium 9.2 mg/dL (8.5-10.1); Calculated LDL 123 mg/dL (<100); Chloride 105 mmol/L (98-107); Cholesterol 233 mg/dL (<200); Estimated GFR 73.64 (mL/min/1.73m2); Glucose 85 mg/dL (74-106); HDL Cholesterol 93 mg/dL (40-60); Potassium 4.1 mmol/L (3.5-5.1); Sodium 140 mmol/L (136-145); TSH (W/Ref FT4) 3.21 uIU/mL (0.36-3.74); Triglyceride 88 mg/dL (<150)
[2023-12-01 18:56] LABS: Ferritin 116 ng/mL (8-252); Lab Add On Test DONE
== END 2023-12-01 11:44 | disposition home or self-care (01) ==
LOC: LBO 11:43
PROVIDERS: PCP Nurse Practitioner Family; Visit Provider Nurse Practitioner Family
DX: F32.9 Major depressive disorder, single episode, unspecified (principal); G25.81 Restless legs syndrome; J45.909 Unspecified asthma, uncomplicated; K21.9 Gastro-esophageal reflux disease without esophagitis; Z00.00 Encounter for general adult medical examination without abnormal findings
CPT/HCPCS: 36415; 80048; 80061; 85027; 82728; 83540; 83550; 84443

== ENCOUNTER → 2023-12-03 01:07 | Outpatient (CLI) | payer OTHER, SELFPAY ==
--- NOTE | 2023-12-03 | DI.MAMMO_ITS ---
Exam(s) MG MAMMO SCREEN CALL BACK UNI US BREAST RT LIMITED EXAM: MG MAMMO SCREEN CALL BACK UNI-RIGHT AND COMPLETE RIGHT BREAST ULTRASOUND CLINICAL HISTORY: F/U ABNL MAMMO, R92.8,? NEW RT BREAST NODULE. TECHNIQUE: Unilateral spot mammographic images obtained with 3D tomosynthesisand utilizing computer aided detection (CAD). . Complete RIGHT breast Ultrasound was also performed, including all 4 quadrants, the retroareolar mayito on, and the ipsilateral axilla. COMPARISON: Prior mammograms were reviewed. This additional imaging was performed due to findings described on the recent screening mammogram of 12/01/2023. FINDINGS: DIAGNOSTIC MAMMOGRAM: Additional mammographic views performed todayrender this area less concerning and similar in appearan ce to prior mammograms. COMPLETE RIGHT BREAST ULTRASOUND: Ultrasound performed today reveals no evidence of solid or significant cystic lesions in all 4 quadra nts. Small benign lipoma noted at 7 o'clock position.. Scanning of the ipsilateral axilla reveals no significant adenopathy. IMPRESSION: 1. No radiographic evidence of malignancy in the right breast. 2. Negative complete right breast ultrasound Appropriate follow-up is to keep this patient on a yearly mammogram schedule with earlier imaging if a self detected breast change is noted.. The patient was informed of these findings and recommendations by myself prior to leaving the departm ent today. BI-RADS Category 2 - Benign Findings Breast Density - Category C - Heterogeneously dense Breast density Category C or D implies that the patient has dense breast tissue. Dense breast tissue can make it harder to find cancer on a mammogram. Dense breast tissue is also associated with an incr eased risk of breast cancer. This information about the result of the mammogram report was provided to the patient to raise their awareness. Use this report when you speak with the patient about their risks for breast cancer, which includes their family history. At that time, you may recommend additional screening tests (Ultrasoun d or MRI) as these tests may add significant information. A negative radiographic report should not delay biopsy if a dominant or clinically suspicious mass is present. Up to ten percent of cancers are not identified on mammography. A negative report may reinforce clinical impression. Adenosis and dense breasts may obscure an underlying neoplasm. False positive reports average 6 to 10%. Patient will receive a letter notifying them of these results.
== END ==
PROVIDERS: PCP Nurse Practitioner Family; Visit Provider Nurse Practitioner Family
DX: Z12.31 Encounter for screening mammogram for malignant neoplasm of breast (principal); R92.8 Other abnormal and inconclusive findings on diagnostic imaging of breast
CPT/HCPCS: 76642; 77063; 77067

== ENCOUNTER 2024-12-03 20:27 | Outpatient (REF) | payer OTHER, SELFPAY ==
[2024-12-03 21:29] LABS: Bilirubin Negative (Negative); Blood Trace-intact (Negative); Clarity Turbid (Clear); Glucose Negative (Negative); Ketones Negative (Negative); Leukocyte Esterase Moderate (Negative); Nitrite Negative (Negative); Specific Gravity 1.025 (1.005-1.025); Urobilinogen 0.2 mg/dL (Up to 0.2); pH 5.5 (5-8)
[2024-12-03 21:34] LABS: Bacteria Many HPF (Negative); Casts Negative LPF (Negative); Crystals Moderate Amorphous HPF (Negative); Epithelial Cells Few HPF (Negative); Mucus Negative (Negative); WBC >50 HPF (0-5)
[2024-12-03 21:35] LABS: C & S Indicated? Yes
== END 2024-12-03 20:28 | disposition home or self-care (01) ==
LOC: NCHCN 20:27
PROVIDERS: PCP Nurse Practitioner Family; Visit Provider Physician Assistant
DX: N39.0 Urinary tract infection, site not specified (principal); B96.29 Other Escherichia coli [E. coli] as the cause of diseases classified elsewhere; R82.89 Other abnormal findings on cytological and histological examination of urine
CPT/HCPCS: 87077; 81003; 81015; 87086; 87186

== ENCOUNTER 2024-12-16 01:01 | Outpatient (CLI) | payer OTHER, SELFPAY ==
--- NOTE | 2024-12-16 08:04 | DI.MAMMO_ITS ---
Exam(s) MAMMO SCREENING EXAM: MAMMO SCREENING CLINICAL HISTORY: screening,Z12.39 TECHNIQUE: Bilateral full field digital CC and MLO mammographic images were obtained with 3D tomosyn thesis and utilizing computer aided detection (CAD). COMPARISON: Available for comparison. FINDINGS: Masses/Architectural Distortion: No suspicious masses. No areas of architectural distortion. Microcalcifications: No suspicious pleomorphic-type are seen. Skin Thickening/Nipple Retraction: None. IMPRESSION: 1. No significant interval change with no specific features of malignancy noted. 2. Unless there is more urgent need, screening mammography is recommended, as per [employer] guidelines. BI-RADS Category 1 - Negative Breast Density - Category B - Scattered areas of fibroglandular density Breast density category C or D implies that the patient has dense breast tissue. Dense breast tissue is very common and is not abnormal but dense breast tissue can make it harder to find cancer on a ma mmogram. Also, dense breast tissue may increase their breast cancer risk. This information about the result of the mammogram report was provided to the patient to raise their awareness. Use this report when you speak with the patient about their risks for breast cancer, which includes their family hist ory. At that time, you may recommend for more screening tests (Ultrasound or MRI) as they might be us eful based on their risk. A negative radiographic report should not delay biopsy if a dominant or clinically suspicious mass is present. Up to ten percent of cancers are not identified on mammography. A negative report may reinforce clinical impression. Adenosis and dense breasts may obscure an underlying neoplasm. False positive reports average 6 to 10%. Patient will receive a letter notifying them of these results.
== END 2024-12-16 01:21 ==
LOC: DI 01:01
PROVIDERS: PCP Nurse Practitioner Family; Visit Provider Nurse Practitioner Family
DX: Z12.31 Encounter for screening mammogram for malignant neoplasm of breast (principal); R92.323 Mammographic fibroglandular density, bilateral breasts
CPT/HCPCS: 77063; 77067

== ENCOUNTER 2025-07-04 21:21 | Outpatient (REF) | payer OTHER, SELFPAY | END 2025-07-04 21:22 | disposition home or self-care (01) | LOC: LBN 21:21 | PROVIDERS: PCP Nurse Practitioner Family; Visit Provider Nurse Practitioner Family | DX: N30.00 Acute cystitis without hematuria (principal) | CPT/HCPCS: 87086 ==

== ENCOUNTER 2025-07-12 03:47 | Outpatient (CLI) | payer OTHER, SELFPAY ==
[2025-07-12 12:35] LABS: Glucose Negative (Negative)
[2025-07-12 12:38] LABS: Abs Immature Grans 0.01 10^3/uL (0.0-0.06); HCT 38.1 % (36.0-46.0); HGB 12.6 g/dL (11.2-15.7); Immature Grans % 0.1 %; MCH 30.1 pg (27.0-33.0); MCHC 33.1 % (32.0-36.0); MCV 91 fL (80-95); MPV 10.1 fL (8.0-11.0); Platelet Count 419 10^3/uL (130-400); RBC 4.19 10^6/uL (3.93-5.22); RDW 12.2 % (11.7-14.6); RDW-SD 39.8 fL; WBC 7.03 10^3/uL (4.4-10.8)
[2025-07-12 12:47] LABS: C & S Indicated? No; RBC 0-2 HPF (0-2)
[2025-07-12 13:46] LABS: ALT 28 U/L (14-59); AST 18 U/L (15-37); Albumin 3.8 g/dL (3.4-5.0); Alkaline Phosphatase 93 U/L (46-116); Anion Gap 9.7 mmol/L (3-11); BUN 7 mg/dL (7-18); Bilirubin, Total 0.4 mg/dL (0.2-1.0); CO2 27.3 mmol/L (21.0-32.0); Calcium 9.7 mg/dL (8.5-10.1); Chloride 105 mmol/L (98-107); Estimated GFR 98.34 (mL/min/1.73m2); Glucose 89 mg/dL (74-106); Lipase 51 U/L (<78); Potassium 4.0 mmol/L (3.5-5.1); Sodium 142 mmol/L (136-145); Total Protein 7.0 g/dL (6.4-8.2)
[2025-07-13 09:58] LABS: Hepatitis C Ab w Rflx HCV PCR Negative (Negative)
[2025-07-13 10:15] LABS: HIV-1/2 Ag & Ab Screen Negative (Negative)
== END 2025-07-12 03:48 | disposition home or self-care (01) ==
LOC: LBO 03:47
PROVIDERS: PCP Nurse Practitioner Family; Visit Provider Family Medicine
DX: R10.9 Unspecified abdominal pain (principal); E80.6 Other disorders of bilirubin metabolism; R30.0 Dysuria; Z11.59 Encounter for screening for other viral diseases; Z11.4 Encounter for screening for human immunodeficiency virus [HIV]; Z00.00 Encounter for general adult medical examination without abnormal findings
CPT/HCPCS: 36415; 80053; 83690; 86803; 87389; 81003; 81015; 85025

== ENCOUNTER 2025-09-16 09:06 | Day surgery (SDC) | payer OTHER, SELFPAY ==
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
--- NOTE | 2025-09-15 14:09 | W.COLOREPORT ---
Date of service: 09/16/25 Time of Service: 11:19 Colonoscopy Report Date of procedure: 09/16/25 Pre-op diagnosis general: Screening colonoscopy Post-op diagnosis procedure note: other (Diverticulosis) Procedure: Colonoscopy Surgeon: Shankar Young Anesthesia Type: General:No Airway Estimated blood loss (mL): 0 Pathology: none sent Complications: None Disposition: same day Indications: Jennifer is a 60-year-old woman who needs her next screening colonoscopy Prep: Miralax/Dulcolax Procedure Start Time: 10:47 Procedure End Time: 11:09 Retraction Time: 7 Findings: Diverticulosis Procedure Description: After the induction of anesthesia, and with the patient in left lateral decubitus position, I began by performing an external anorectal exam. Perineum and skin were normal, as was the anal verge. There was no evidence of external hemorrhoids. Next, I performed a digital rectal exam. I did not appreciate any abnormal findings. Next, I advanced a colonoscope into the rectal vault. I performed retroflexion. This appeared normal. Using insufflation, I then advanced the colonoscope beyond the rectal folds and into the sigmoid colon before advancing towards the cecum. There is sigmoid diverticulosis. The scope was noted to be in the cecum by identification of the ileocecal valve and appendiceal orifice. I then began withdrawing the colonoscope using repeated irrigation as necessary for full evaluation of the colonic mucosa. Once the scope was withdrawn to the level of the rectum, great care was taken to examine portions of the rectal folds. I saw no signs of tumors or polyps. Finally, the scope was withdrawn and the patient was brought to the same-day surgery recovery unit as the anesthetic wore off. The findings and instructions were shared with the patient prior to discharge. [place] Bowel Prep [place] Bowel Prep Right Colon: 3 Left Colon: 2 Transverse Colon: 3 Total Score: 8
[2025-09-16 09:30] VITALS: BP 113/73; PULSE 71; RESP 17; TEMP 36.4; O2SAT 98
[2025-09-16] MEDS: Lactated Ringers 1,000 ML 80 ML IV (09:47)
[2025-09-16 10:15] VITALS: BMI 25.5
--- NOTE | 2025-09-16 10:15 | ANES.PREOP_ITS ---
General Info Date of Service Date Performed: 09/16/25 Height: 5 ft 8.5 in Weight: 77.4 kg Body Mass Index (BMI): 25.5 Surgical Procedure: Operation Date: 09/16/25 10:35 Proposed Procedure Side Surgeon p Colonoscopy Shankar Young MD Actual Procedure Side Surgeon p Colonoscopy Not Applicable Shankar Young MD Meds Allergies and Home Medications Allergies Allergy/AdvReac Type Severity Reaction Status Date / Time No Known Allergies Allergy Verified 09/16/25 09:40 Home Medication Medication Instructions Recorded magnesium 200 mg tablet 200 mg PO DAILY 08/28/20 lidocaine 5 % topical patch 1 patch topical DAILY #30 ea 04/17/23 nystatin 100,000 unit/gram topical 1 applic topical TI D fungal rash 08/06/24 powder #60 grams epinephrine 0.3 mg/0.3 mL 0.3 mg (0.3 mL) subcut Q15M #2 ea 10/04/24 injection syringe gabapentin 600 mg tablet 600 mg PO QHS #90 tabs 02/24 tirzepatide (weight loss) 15 15 mg (0.5 mL) subcut QWE EK #2 mL 03/25/25 mg/0.5 mL subcutaneous pen injector estradiol 10 mcg vaginal tablet 10 mcg vaginal Q OTHER DAY 3 05/31/25 (Vagifem) months #45 tabs bisacodyl 5 mg tablet,delayed 5 mg PO ONCE Colonoscopy Bowel 07/25/25 release Prep #4 tabs polyethylene glycol 3350 17 238 g PO ONCE #238 grams 0 07/25/25 gram/dose oral powder rizatriptan 10 mg tablet (Maxalt) See Rx Instructions PO .COMPLEX 09/03/25 #14 tabs Current Visit Medications: Current Medications Generic Name Dose Route Start Last Admin Trade Name Freq PRN Reason Stop Dose Admin Ringer's Solution 1,000 mls @ 80 mls/hr 09/16/25 06:00 09/16/25 09:47 IV 09/16/25 23:59 80 mls/hr INFUSION XIOMY Administration IV Miscellaneous Supplies 1 each 09/16/25 06:00 Iv Access IV 09/16/25 23:59 DIRECTED XIOMY Sodium Chloride 0 ml 09/16/25 06:00 Normal Saline Flush 10 Ml Syr IV 09/16/25 23:59 PRN PRN Sodium Chloride 0 ml 09/16/25 06:00 Normal Saline 10 Ml Vial IJ 09/16/25 23:59 DIRECTED PRN Sterile Water 0 ml 09/16/25 06:00 Water,Injection,Sterile 10 Ml Vial IJ 09/16/25 23:59 DIRECTED PRN PFSH Active Problems Active Problems: Problem Status Onset Code Encounter for screening colonoscopy Acute Z12.11 Cholelithiasis Acute K80.20 Atrophic vaginitis Acute N95.2 Neuropathy of foot Acute G57.90 Hyperlipidemia Acute E78.5 Temporomandibular joint disorder Chronic M26.609 Hyposmia Acute R43.8 Chronic congestion of paranasal sinus Acute J32.9 GERD (gastroesophageal reflux disease) Chronic K21.9 Asthma Chronic J45.909 Thyroglossal duct cyst Acute 08/15/17 Q89.2 Restless leg syndrome Acute 02/19/15 G25.81 Depressive disorder Acute F32.9 Cluster headache syndrome Acute G44.009 Anxiety Acute 10/04/13 F41.9 Medical History Medical History Sleep deprivation Nocturia Dyspnea Hypersomnia Depression Migraines Diverticulosis Surgical History Surgical History Ligation of fallopian tube THYROID CYST REMOVED 10/12 [facility] Endometrial Ablation (~2006) thermablation BUNIONECTOMY (~09/2012) RIGHT Tobacco Smoking/Tobacco Use Status: Never Passive smoking exposure: Yes Second hand exposure: Yes Alcohol Alcohol Intake: current Alcohol intake frequency: a few times a week Alcohol type: beer and wine Details: 6 or more drinks monthly or less Substance Use Substance use: Rarely Substance use type: marijuana Details: last ETOH 09/10/25 Vital Signs and Lab Results Vital Signs Most Recent Vital Signs in EMR: Most Recent Vital Signs Temp Pulse Resp BP Pulse Ox 36.4 C L 71 17 113/73 98 09/16/25 09:30 09/16/25 09:30 09/16/25 09:30 09/16/25 09:30 09/16/25 09:30 Anesthesia Assessment and Plan Anesthesia History Personal History: PONV Family History: No Family History of Anesthesia Complications Exercise Tolerance Exercise Tolerance: Metabolic Equivalents>4 Pertinent Negatives Pertinent Negatives: No Symptoms of GERD Cardiac & Pulmonary Exam Cardiac Exam: Normal S1/S2 Heart Sounds Pulmonary Exam: Clear Bilateral Breath Sounds Implantable Cardiac Device Does patient have a Pacemaker or an ICD?: No Airway Exam Known Difficult Airway: No Mallampati Class: 2 Mouth Opening: Normal (> 3cm) Thyromental Distance: Greater than 3 cm Neck Range of Motion: Full ROM Neck Circumference: Normal Teeth Condition: Normal Dentition ASA Classification ASA Score: ASA 2 Emergency Case?: No NPO Status NPO Status: NPO Clears >2 hours, Solids >8 hours Anesthesia Plan Resuscitation Status: Full Code Anesthesia Technique: General Anesthesia Airway Planned: Natural Airway Monitors Used: Standard Monitors
--- NOTE | 2025-09-16 10:35 | W.PM.DSUDISC ---
Date of service: 09/16/25 Discharge Plan Disposition Patient Disposition: Home Condition: Good Discharge Details Reason For Visit: Screening colonoscopy Attending Provider: Shankar Young Primary Care Provider: Trinidad Rubi Home Meds and New Rx's Prescriptions: Continued nystatin 100,000 unit/gram powder 1 applic topical TID Qty: 60 3RF Rx Instructions: Apply to under breast three times daily. gabapentin 600 mg tablet 600 mg PO QHS Qty: 90 3RF epinephrine 0.3 mg/0.3 mL syringe 0.3 mg subcut Q15M Qty: 2 3RF Rx Instructions: go to the hospital after injecting med magnesium 200 mg tablet 200 mg PO DAILY lidocaine 5 % adhesive patch,medicated 1 patch topical DAILY Qty: 30 1RF Rx Instructions: leave on most painful area for up to 12 hrs tirzepatide (weight loss) 15 mg/0.5 mL pen injector 15 mg subcut QWEEK Qty: 2 3RF Rx Instructions: for 4 weeks estradiol [Vagifem] 10 mcg tablet 10 mcg vaginal Q OTHER DAY 90 Days Qty: 45 3RF rizatriptan [Maxalt] 10 mg tablet See Rx Instructions PO .COMPLEX Qty: 14 0RF Rx Instructions: take 1 tab at onset of headache; if no relief may repeat 1 tab after at least 2 hrs; max = 3 tabs/24 hr PO Discontinued bisacodyl 5 mg tablet,delayed release (DR/EC) 5 mg PO ONCE Qty: 4 0RF Rx Instructions: Per Colonoscopy bowel prep instructions polyethylene glycol 3350 17 gram/dose powder 238 g PO ONCE Qty: 238 0RF Rx Instructions: For Colonoscopy bowel prep, as directed by office Discharge Instructions Instructions: Diverticulosis Additional Instructions: Jennifer, it was good to see you today, and I hope you feel well after the procedure. Things went very smoothly. I did not see any tumors or polyps today. Incidentally, you do have diverticulosis. This occurs when the muscular layer of the colon wall weakens a little bit as we age. This causes little pockets or pouches to form. This pockets are known as diverticula, and the condition of having them is called diverticulosis. These can get infected or inflamed during flareups that we often times refer to as diverticulitis. I will attach some basic information here about typical approaches to diverticular management. If you have any questions, or need anything at all, please do not hesitate to ask. Otherwise, I think a 10-year interval would be appropriate for her next screening colonoscopy. Stand Alone Forms: Anesthesia Discharge Inst., Lupe Matias (DSU), Portal Information Activity:: Activity as Tolerated Diet:: As Tolerated Discharge Orders Discharge Orders: Discharge Order (Routine); Ordered 09/15/25 Ordered By: Shankar Young DS: Diagnosis Discharge Diagnosis (1) Encounter for screening colonoscopy: Status: Acute Asessment and Plan: Negative screening colonoscopy
[2025-09-16 11:17] VITALS: BP 105/72; PULSE 77; RESP 16; TEMP 36; O2SAT 98
--- NOTE | 2025-09-16 11:21 | W.ANESPOSTOP ---
Postoperative Evaluation Date, Time and Location Date Performed: 09/16/25 Time Performed: 11:21 Patient Location: Day Surgery Unit Vital Signs Most Recent Imported Vital Signs: Most Recent Vital Signs Temp Pulse Resp BP Pulse Ox 36 C L 77 16 105/72 98 09/16/25 11:17 09/16/25 11:17 09/16/25 11:17 09/16/25 11:17 09/16/25 11:17 Pain Score Most Recent Pain Score: Most Recent Pain Score Pain Level 0 09/16/25 09:30 Assessment Mental Status: Awake (Alert & Oriented to Patient Baseline) Airway and Respiratory Function: Patent airway with normal (patient baseline) respiratory exam Cardiovascular Function: Hemodynamically Stable Hydration Status: Adequately Hydrated Nausea & Vomiting: No Nausea or Vomiting Pain: Pt. Denies Any Pain Peripheral Nerve Block: Patient did not receive a nerve block
[2025-09-16 11:49] VITALS: BP 107/77; PULSE 59; RESP 16; TEMP 36.2; O2SAT 100
== END 2025-09-16 11:54 | disposition home or self-care (01) ==
PROVIDERS: PCP Nurse Practitioner Family; Visit Provider Surgery
PROC: 0DJD8ZZ Inspection of Lower Intestinal Tract, Via Natural or Artificial Opening Endoscopic (ICD-10-PCS; CPT 45378; principal; 2025-09-16 10:30)
DX: Z12.11 Encounter for screening for malignant neoplasm of colon (principal); K57.30 Diverticulosis of large intestine without perforation or abscess without bleeding
CPT/HCPCS: 45378; J1100; J2003; J2405; J2704

== ENCOUNTER 2025-10-10 13:05 | Outpatient (REF) | payer OTHER, SELFPAY ==
--- NOTE | 2025-10-10 09:10 | PAPFT_PTH ---
PATIENT: Nelia Durham LOC: [facility] U#:[id number] AGE/SX: 60/F ROOM: RE10/10/[address]: Trinidad Rubi NP : 1965 BED: DIS: 10/10/2025 SPEC #: [id number] RECD: 10/10/25 18:11 STATUS: ERVIN GAMEZ #: [id number] SUSANNE: 10/10/25 09:[address]: Trinidad Rubi DEPT: [facility] Cytology RECD BY: Ophelia Granados Tissues: 1 - CX/ENDOCX FOR PAP SMEARS Procedures: PAP THIN PREP/UVM Screening Comments: [id number] (HPV 16 & 18/45)
== END 2025-10-10 13:06 | disposition home or self-care (01) ==
LOC: LBN 13:05
PROVIDERS: PCP Nurse Practitioner Family; Visit Provider Nurse Practitioner Family
DX: Z12.4 Encounter for screening for malignant neoplasm of cervix (principal)
CPT/HCPCS: 88142